=== PATIENT | female | born 1935 | race American Indian/Alaskan Native ===

== ENCOUNTER 2017-07-03 14:30 | Emergency (ER) | payer MEDICARE, MEDICAID ==
[2017-07-03 14:37] VITALS: BP 150/59
--- NOTE | 2017-07-03 14:59 | ER Document Report ---
HPI - HPI Pain Level: 1 Notes: Patient is an 81-year-old female with history of hypertension, hypercholesterolemia, diabetes, osteoarthritis who presents the ED complaining of left knee pain and low back pain status post in her kitchen prior to arrival. Patient states that she was trying to step on a spider and her foot slipped and she fell on her butt knee and back. Patient denies any head injury , loss of consciousness, nausea/vomiting. Daughter states that she is ambulating without any signs of discomfort or issues. Patient is not on any blood thinners. She is still eating and drinking without any difficulties. Denies any drug allergies. Denies any headache, fever, head injury, neck pain, changes in vision/speech/mentation/hearing, URI, sore throat, chest pain, palpitations, syncope, cough, shortness of breath, wheeze, dyspnea, abdominal pain, nausea/vomiting/diarrhea, urinary retention, dysuria, hematuria, loss of control of bowel or bladder, numbness/tingling, saddle anesthesia, muscle paralysis/weakness, or rash. - ROS Notes: REVIEW OF SYSTEMS: CONSTITUTIONAL : Denies fever, chills, or sweats. Denies recent illness. EENT: Denies eye, ear, throat, or mouth pain or symptoms. Denies nasal or sinus congestion or discharge. Denies throat, tongue, or mouth swelling or difficulty swallowing. CARDIOVASCULAR: Denies chest pain. Denies palpitations or racing or irregular heart beat. Denies ankle edema. RESPIRATORY: Denies cough, cold, or chest congestion. Denies shortness of breath, difficulty breathing, or wheezing. GASTROINTESTINAL: Denies abdominal pain or distention. Denies nausea, vomiting , or diarrhea. Denies blood in vomitus, stools, or per rectum. Denies black, tarry stools. Denies constipation. GENITOURINARY: Denies difficulty urinating, painful urination, burning, frequency, blood in urine, or discharge. MUSCULOSKELETAL: see hpi SKIN: Denies rash, lesions or sores. NEUROLOGICAL: Denies confusion or altered mental status. Denies passing out or loss of consciousness. Denies dizziness or lightheadedness. Denies headache. Denies weakness or paralysis or loss of use of either side. Denies problems with gait or speech. Denies sensory loss, numbness, or tingling. Denies seizures. ALL OTHER SYSTEMS REVIEWED AND NEGATIVE. Dictation was performed using [employer] voice recognition software - REPRODUCTIVE Reproductive: DENIES: : Past Medical History - Social History Smoking Status: Unknown if Ever Smoked Family History: Reviewed & Not Pertinent - Past Medical History Cardiac Medical History: Reports: Hx Hypercholesterolemia, Hx Hypertension Pulmonary Medical History: Reports: Hx Asthma, Hx COPD Endocrine Medical History: Reports: Hx Diabetes Mellitus Type 1, Hx Diabetes Mellitus Type 2 Malignancy Medical History: Reports: Hx Breast Cancer Past Surgical History: Reports: Hx Mastectomy - Left - Immunizations Hx Diphtheria, Pertussis, Tetanus Vaccination: Yes Hx Pneumococcal Vaccination: 06/23/14 Vertical Provider Document - CONSTITUTIONAL Agree With Documented VS: Yes Notes: PHYSICAL EXAMINATION: GENERAL: Well-appearing, well-nourished and in no acute distress. A&Ox4 HEAD: Atraumatic, normocephalic. Non-tender. No shi sign EYES: Pupils equal round and reactive to light, extraocular movements intact, sclera anicteric, conjunctiva are normal. No raccoon eyes/entrapment ENT: EAC clear b/l. TM's intact b/l without erythema, fluid, or perforation. Nares patent and without discharge. oropharynx clear without exudates. No tonsilar hypertrophy or erythema. Moist mucous membranes. No sinus tenderness. No hemotympanum/CSF discharge. NECK: Normal range of motion, supple without lymphadenopathy. No rigidity. No midline tenderness. Spurling negative. NEXUS negative. Chest: No flail chest. equal rise/fall. Non-tender LUNGS: Breath sounds clear to auscultation bilaterally and equal. No wheezes rales or rhonchi. HEART: Regular rate and rhythm without murmurs, rubs, gallops. ABDOMEN: Soft, nontender, nondistended abdomen. No guarding, no rebound. No masses appreciated. Normal bowel sounds present. No CVA tenderness bilaterally. No pulsatile mass Musculoskeletal: Ext b/l: FROM to passive/active. Strength 5+/5. No deficits noted. + mild tenderness to the anterior left knee w/o ecchymosis, deformity, or erythema/warmth. Back: FROM to passive/active. Strength 5+/5. No vertebral point tenderness, stepoffs, or deformities. No other bony tenderness or ecchymosis. SLR negative b/l. + mild tenderness to the L-paraspinal mm. No SI jt tenderness. FROM at the hips b/l, non-tender. Extremities: No cyanosis, clubbing, or edema b/l. Peripheral pulses 2+. Capillary refill less than 2 seconds. NEUROLOGICAL: MMSE intact. Cranial nerves grossly intact. Normal speech, normal gait. Normal sensory, motor exams. Reflexes 2+ b/l. Pronator drift negative. PSYCH: Normal mood, normal affect. SKIN: Warm, Dry, normal turgor, no rashes or lesions noted. - INFECTION CONTROL TRAVEL OUTSIDE OF THE [place] IN LAST 30 DAYS: No - RESPIRATORY O2 Sat by Pulse Oximetry: 97 Course - Re-evaluation Re-evalutation: 07/03/17 16:00 Patient is an afebrile, well-hydrated, 81-year-old female who presents the ED with a contusion to her left knee as well as a probable lower back strain. Vitals are stable. PE is otherwise unremarkable for any focal neurological deficits. X-ray of the low back and left knee are unremarkable for any acute pathology. Tylenol given p.o. today. Patient is ambulatory without any signs of discomfort or limping. Recommend conservative measures for symptoms. Low suspicion for any meningitis, fracture, expanding/ruptured AAA, cauda equina syndrome, epidural mass lesion/abscess, herniated disc causing severe spinal stenosis, or other systemic infection at this time. Patient/daughter are aware that this condition can change from initial presentation and that they need monitor symptoms closely for any acute changes. Recheck with your PCM in 3-5 days. Consider consult with orthopedics and physical therapy. Return to the ED with any worsening/concerning symptoms otherwise as reviewed in discharge. Patient and daughter in agreement. - Vital Signs Vital signs: Temp Pulse Resp BP Pulse Ox 99.0 F 57 L 17 150/59 H 97 07/03/17 14:36 07/03/17 14:36 07/03/17 14:36 07/03/17 14:36 07/03/17 14:36 Discharge - Discharge Clinical Impression: Contusion of left knee Qualifiers: Encounter type: initial encounter Qualified Code(s): S80.02XA - Contusion of left knee, initial encounter Low back strain Qualifiers: Encounter type: initial encounter Qualified Code(s): S39.012A - Strain of muscle, fascia and tendon of lower back, initial encounter Condition: Stable Disposition: HOME, SELF-CARE Instructions: Contusion ([facility]), Ice Packs ([facility]), Knee Exercise Program ([facility]), Low Back Pain ([facility]), Muscle Strain ([facility]), Stretching Exercises for the Back ([facility] ), Warm Packs ([facility]) Additional Instructions: Rest, Ice, Compression, Elevation Tylenol/ibuprofen as needed Consider a single point cane to aide in ambulation Light stretches daily Strength exercises as able Moist heat and massage may help F/u with your PCP in 3-5 days for a recheck Consider consult(s) with Orthopedics/physical therapy for ongoing/worsening symptoms Return to the ED with any worsening symptoms and/or development of fever, headache, chest pain, palpitations, syncope, shortness of breath, trouble breathing, abdominal pain, n/v/d, blood in stool/urine, loss of control of bowel /bladder, urinary retention, muscle weakness/paralysis, saddle anesthesia, numbness/tingling, or other worsening symptoms that are concerning to you. Forms: Elevated Blood Pressure Referrals: [facility] [Provider Group] - Follow up as needed
[2017-07-03] MEDS ORDERED: ACETAMINOPHEN 325 MG TABLET PO ONE (15:09)
--- NOTE | 2017-07-03 15:44 | RADIOLOGY REPORT (SQ) ---
EXAM DESCRIPTION: L SPINE WHOLE COMPLETED DATE/TIME: 07/03/2017 3:30 pm REASON FOR STUDY: low back pain s/p fall COMPARISON: None. NUMBER OF VIEWS: Five views including obliques. TECHNIQUE: AP, lateral, oblique, and sacral radiographic images acquired of the lumbar spine. LIMITATIONS: None. FINDINGS: MINERALIZATION: Osteopenia. SEGMENTATION: Normal. No transitional anatomy. ALIGNMENT: Normal. VERTEBRAE: Maintained height. No fracture or worrisome bone lesion. DISCS: There is narrowing of the L4-5 disc space. There is narrowing at L5-S1. Marginal osteophytes are present throughout the lumbar spine. POSTERIOR ELEMENTS: Hypertrophic facet changes are present L4-S1. HARDWARE: None in the spine. PARASPINAL SOFT TISSUES: Normal. PELVIS: Intact as visualized. No fractures or worrisome bone lesions. SI joints intact. OTHER: No other significant finding. IMPRESSION: Degenerative disc disease, multilevel spondylosis. Facet arthropathy. No acute abnorma lity. TECHNICAL DOCUMENTATION: JOB ID: [id number] [employer]- All Rights Reserved
--- NOTE | 2017-07-03 15:47 | RADIOLOGY REPORT (SQ) ---
EXAM DESCRIPTION: KNEE LEFT 3 VIEW COMPLETED DATE/TIME: 07/03/2017 3:30 pm REASON FOR STUDY: left knee pain COMPARISON: None. NUMBER OF VIEWS: Three views. TECHNIQUE: AP, lateral, and oblique radiographic images acquired of the left knee. LIMITATIONS: None. FINDINGS: MINERALIZATION: Normal. BONES: No acute fracture or dislocation. No worrisome bone lesions. JOINT: There is moderate narrowing of the medial compartment with small marginal osteophytes. Tiny p osterior patellar spurs are present. There is no joint effusion. SOFT TISSUES: No soft tissue swelling. No radio-opaque foreign body. OTHER: No other significant finding. IMPRESSION: Degenerative joint changes as described. No acute abnormality. TECHNICAL DOCUMENTATION: JOB ID: [id number] [employer]- All Rights Reserved
== END 2017-07-03 16:13 | disposition home or self-care (01) ==
LOC: ER 14:30
DX: S80.02XA Contusion of left knee, initial encounter (principal); S39.012A Strain of muscle, fascia and tendon of lower back, initial encounter; I10 Essential (primary) hypertension; E78.00 Pure hypercholesterolemia, unspecified; E11.9 Type 2 diabetes mellitus without complications; M17.12 Unilateral primary osteoarthritis, left knee; W01.0XXA Fall on same level from slipping, tripping and stumbling without subsequent striking against object, initial encounter
CPT/HCPCS: 99283; 73562; 72110; A9270

== ENCOUNTER 2020-08-05 20:56 | Inpatient (IN) | payer MEDICARE, MEDICAID ==
[2020-08-05] MEDS ORDERED: IPRATROPIUM/ALBUTEROL 0.5-2.5 MG/3 ML AMPUL NEB ONE ×2 (21:16→22:10)
--- NOTE | 2020-08-05 21:45 | RADIOLOGY REPORT (SQ) ---
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 FINDINGS: Single view is obtained. Cardiac and mediastinal contours are normal. Parenchymal band is evident about the right lung base, likely atelectasis or scar. Lungs are otherwise clear. No pleural effusion or pneumothorax. A few surgical clips project over the left axilla. IMPRESSION: No acute disease.
[2020-08-05 21:47] LABS: ABSOLUTE EOSINOPHILS # (AUTO) 0.5 10^3/uL (0.0-0.6); ABSOLUTE LYMPHOCYTES (AUTO) 3.7 10^3/uL (0.5-4.7); ABSOLUTE MONOCYTES (AUTO) 0.9 10^3/uL (0.1-1.4); BASOPHILS % (AUTO) 0.5 % (0-2); EOSINOPHILS % (AUTO) 6.4 % (0-6); HEMATOCRIT 41.9 % (36.0-47.0); HEMOGLOBIN 13.9 g/dL (12.0-15.5); LYMPHOCYTES % (AUTO) 45.5 % (13-45); MEAN CORPUSCULAR HEMOGLOBIN 27.9 pg (27.0-33.4); MEAN CORPUSCULAR VOLUME 84 fl (80-97); MONOCYTES % (AUTO) 10.6 % (3-13); PLATELET COUNT 181 10^3/uL (150-450); RED BLOOD COUNT 4.97 10^6/uL (3.72-5.28); RED CELL DISTRIBUTION WIDTH 14.2 % (11.5-14.0); TOTAL CELLS COUNTED % (AUTO) 100 %; WHITE BLOOD COUNT 8.2 10^3/uL (4.0-10.5)
[2020-08-05 22:06] LABS: ALBUMIN 4.5 g/dL (3.5-5.0); ALKALINE PHOSPHATASE 79 U/L (38-126); ANION GAP 7 (5-19); ASPARTATE AMINO TRANSFERASE 36 U/L (14-36); BILIRUBIN,DIRECT 0.4 mg/dL (0.0-0.4); BILIRUBIN,TOTAL 0.6 mg/dL (0.2-1.3); BLOOD UREA NITROGEN 24 mg/dL (7-20); CALCIUM 10.2 mg/dL (8.4-10.2); CARBON DIOXIDE 28 mmol/L (22-30); CHLORIDE 107 mmol/L (98-107); GLUCOSE 125 mg/dL (75-110); POTASSIUM 4.9 mmol/L (3.6-5.0); TOTAL PROTEIN 7.5 g/dL (6.3-8.2)
[2020-08-05] MEDS ORDERED: METHYLPREDNISOLONE INJ 125 MG/2 ML SDV IV ONE (22:11)
--- NOTE | 2020-08-05 22:17 | ER Document Report ---
ED General - General Chief Complaint: Breathing Difficulty Stated Complaint: POSSIBLE PNEUMONIA Time Seen by Provider: 08/05/20 21:29 Primary Care Provider: AARON EDGAR MD [Primary Care Provider] - Follow up as needed TRAVEL OUTSIDE OF THE [place] IN LAST 30 DAYS: No - HPI Notes: Patient is an 84-year-old female who presents to the emergency department for evaluation. She became short of breath this evening. It was gradual in onset. She denies any pain. She has a chronic cough, states it really has not been worse than normal. She denies any sore throat, ear pain, anosmia. She has no difficulty with her sense of taste. She has had no nausea or vomiting. Eating and drinking normally. Normal bowel movements. - Related Data Allergies/Adverse Reactions: No Known Allergies Allergy (Verified 07/03/17 14:32) Home Medications: haldol, simvastatin, metoprolol, novalog, lantus Past Medical History - General Information source: Patient, Relative - Social History Smoking Status: Never Smoker Chew tobacco use (# tins/day): Yes Frequency of alcohol use: None Drug Abuse: None Family History: Reviewed & Not Pertinent Patient has homicidal ideation: No - Past Medical History Cardiac Medical History: Reports: Hx Hypercholesterolemia, Hx Hypertension Pulmonary Medical History: Reports: Hx Asthma, Hx COPD Endocrine Medical History: Reports: Hx Diabetes Mellitus Type 2 Renal/ Medical History: Denies: Hx Peritoneal Dialysis Malignancy Medical History: Reports: Hx Breast Cancer Psychiatric Medical History: Reports: Other - History of visual hallucinations Past Surgical History: Reports: Hx Mastectomy - Left - Immunizations Hx Diphtheria, Pertussis, Tetanus Vaccination: Yes Hx Pneumococcal Vaccination: 06/23/14 Review of Systems - Review of Systems Constitutional: No symptoms reported EENT: No symptoms reported Cardiovascular: No symptoms reported Respiratory: See HPI Gastrointestinal: No symptoms reported Genitourinary: No symptoms reported Musculoskeletal: No symptoms reported Skin: No symptoms reported Neurological/Psychological: No symptoms reported Physical Exam - Vital signs Vitals: Temp Pulse BP Pulse Ox 97.9 F 78 197/109 H 88 L 08/05/20 21:04 08/05/20 21:04 08/05/20 21:04 08/05/20 21:04 - Notes Notes: This is an 84-year-old female, extremely hard of hearing, who appears her stated age, in a mild to moderate distress. She is tachypneic. Vital signs reviewed, please refer to chart. Head is normocephalic, atraumatic. Oral mucosa is moist. Neck is supple without meningismus. Heart is regular rate and rhythm. Lungs reveal scattered expiratory wheezes throughout. Abdomen is soft, nontender, normoactive bowel sounds throughout. Extremities without cyanosis, clubbing. Pitting edema to the pretibial regions bilaterally. Posterior calves are nontender. Peripheral pulses are equal. Skin is warm and dry. Patient is awake, alert, cooperative with examiner. Course - Re-evaluation Re-evalutation: 08/05/20 22:17 Patient presents emergency department for evaluation. She had laboratory investigations and imaging as ordered per protocol. EKG ordered. EKG reveals lateral ST depression concerning for possible ischemia. Troponin was ordered. Chest x-ray fails to show any signs of an acute pneumonia. Given her hypoxia and the current pandemic environment, the patient will have a Covid test ordered. She is feeling improved after the breathing treatment, but has an oxygen requirement. She will likely require admission. Awaiting the remainder of the patient's test results. We will continue to monitor. 08/06/20 01:05 Respiratory panel is negative. Patient's oxygenation has been stable on 2 L per nasal cannula. She does continue to have intermittent wheezing. I have spoken with Dr. Linares, he will come down and evaluate the patient. 08/06/20 01:44 Dr. Linares will admit the patient. - Vital Signs Vital signs: Temp Pulse Resp BP Pulse Ox 98.2 F 73 31 H 172/87 H 94 08/05/20 21:33 08/05/20 21:33 08/06/20 01:01 08/06/20 01:00 08/06/20 01:01 - Laboratory Results Result Diagrams: 08/05/20 21:20 08/05/20 21:20 Laboratory Results Interpreted: 08/05/20 08/05/20 08/05/20 21:20 21:20 23:50 RDW 14.2 H Lymph % (Auto) 45.5 H Eos % (Auto) 6.4 H Seg Neutrophils % 37.0 L BUN 24 H Est GFR (MDRD) Non-Af 58 L Glucose 125 H Urine Protein 100 H Ur Leukocyte Esterase SMALL H Urine Ascorbic Acid 40 H Critical Laboratory Results Reviewed: No Critical Results - Radiology Results Radiology Results Interpreted: 08/05/20 22:18 Chest X-Ray 08/05/20 21:09 IMPRESSION: No acute disease. Critical Radiology Results Reviewed: No Critical Results - EKG Interpretation by Me Additional EKG results interpreted by me: 08/05/20 22:18 Sinus rhythm with a rate of 69 bpm. Normal axis. First-degree AV block. IVCD. ST depression in anterolateral leads concerning for possible ischemia. No elevation. This is change in compared to prior study performed in June 2014. Discharge - Discharge Clinical Impression: Hypoxia, Abnormal EKG COPD (chronic obstructive pulmonary disease) Qualifiers: COPD type: COPD with acute exacerbation Qualified Code(s): J44.1 - Chronic obstructive pulmonary disease with (acute) exacerbation Condition: Stable Disposition: ADMITTED INPATIENT Admitting Provider: [facility] Admitted: Telemetry Referrals: AARON EDGAR MD [Primary Care Provider] - Follow up as needed
--- NOTE | 2020-08-05 23:56 | EKG REPORT ---
SEVERITY:- ABNORMAL ECG - SINUS RHYTHM VENTRICULAR PREMATURE COMPLEX NONSPECIFIC INTRAVENTRICULAR CONDUCTION DELAY ST DEPRESSION, CONSIDER ISCHEMIA, ANT-LAT LDS : Confirmed by: Kathy Lennon MD 05-Aug-2020 23:55:31
[2020-08-06 00:02] LABS: APPEARANCE,URINE CLEAR; BILIRUBIN,URINE NEGATIVE (NEGATIVE); COLOR,URINE YELLOW; GLUCOSE, URINE NEGATIVE (NEGATIVE); KETONES,URINE NEGATIVE (NEGATIVE); LEUKOCYTE ESTERASE,URINE SMALL (NEGATIVE); NITRITE,URINE NEGATIVE (NEGATIVE); PROTEIN,URINE 100 mg/dL (NEGATIVE); URINE SPECIFIC GRAVITY 1.019; UROBILINOGEN,URINE NEGATIVE mg/dL (<2.0)
[2020-08-06] MEDS ORDERED: ONDANSETRON HCL INJ/PF 4 MG/2 ML SDV IV PRN (01:57)
[2020-08-06] MEDS ORDERED: ACETAMINOPHEN 325 MG TABLET PO PRN (01:57)
[2020-08-06] MEDS ORDERED: DEXTROSE 40% GEL 15 GM TUBE PO PRN ×2 (02:05)
[2020-08-06] MEDS ORDERED: DEXTROSE 50%-WATER 25 GM/50 ML DISP.SYRIN IV PRN ×2 (02:05)
[2020-08-06] MEDS ORDERED: GLUCAGON,HUMAN RECOMB 1 MG INJ IM PRN (02:05)
--- NOTE | 2020-08-06 02:27 | PDOC H&P ---
History of Present Illness Admission Date/PCP: AARON EDGAR MD Patient complains of: Shortness of breath History of Present Illness: WADE PELAEZ is a 84 year old female with a history of COPD, type 2 diabetes mellitus, hypertension, hyperlipidemia and glaucoma who presents with a 1 day duration of worsening of shortness of breath. Patient is hard of hearing and unable to give detailed history but her daughter was at her bedside who is very helpful. Patient has chronic longstanding shortness of breath which has been progressively getting worse but this morning she became distressed and felt short of breath even at rest. Associated with this she also was having audible wheezing. She used albuterol inhaler 4 times with no improvement before presen ting to the ER. She has not noticed any significant change in the intensity of her cough or amount or color of sputum production. She denies any fever, chills, chest pain, palpitation, dizziness, nausea, vomiting. She also denies any orthopnea, PND, leg swelling or any change in her bowel or urinary habits. She denies any recent antibiotic use or hospitalization. Past Medical History Cardiac Medical History: Reports: Hyperlipidema, Hypertension Pulmonary Medical History: Reports: Asthma, Chronic Obstructive Pulmonary Diseas e (COPD) Endocrine Medical History: Reports: Diabetes Mellitus Type 1, Diabetes Mellitus Type 2 Malignancy Medical History: Reports: Breast Cancer Psychiatric Medical History: Reports: Other - History of visual hallucinations Past Surgical History Past Surgical History: Reports: Mastectomy - Left Social History Information Source: Patient Lives with: Family Smoking Status: Never Smoker Frequency of Alcohol Use: None Hx Recreational Drug Use: No Hx Prescription Drug Abuse: No - Advance Directive Resuscitation Status: Full Code Family History Family History: Reviewed & Not Pertinent Parental Family History Reviewed: Yes Children Family History Reviewed: Yes Sibling(s) Family History Reviewed.: Yes Medication/Allergy Home Medications: Albuterol Sulfate [Albuterol Sulfate 2.5mg/3 mL] 1 vial IH Q4 12/21/12 Insulin Aspart [Novolog Flexpen] 25 unit SUBCUT AC 12/21/12 Loratadine [Claritin 10 mg Tablet] 10 mg PO DAILY 12/21/12 Gabapentin [Neurontin 100 mg Capsule] 100 mg PO DAILY 12/28/12 Insulin Glargine,Hum.rec.anlog [Lantus Insulin 100 Unit/mL Insulin Pen] 70 unit SUBCUT QHS 12/28/12 Losartan Potassium 1 tab PO DAILY 12/28/12 Simvastatin [Zocor 40 mg Tablet] 40 mg PO QHS 12/28/12 Beclomethasone Dipropionate [Qvar] 2 puff PO BID 06/23/14 Bimatoprost [Lumigan 0.01% Oph Soln 2.5 ml/Bottle] 1 drop OU QPM 06/23/14 Cholecalciferol (Vitamin D3) [Vitamin D3] 2,000 unit PO DAILY 06/23/14 Raloxifene HCl 60 mg PO DAILY 06/23/14 Tramadol HCl 50 mg PO DAILY 06/23/14 Cyanocobalamin (Vitamin B-12) [Vitamin B-12] 1,000 mcg SL DAILY #100 tab.subl 06/29/14 Levofloxacin [Levaquin 500 mg Tablet] 500 mg PO DAILY #3 tablet 06/29/14 Prednisone [Deltasone 20 mg Tablet] 20 mg PO BID #12 tablet 06/29/14 Benzonatate [Tessalon Perle 100 mg Capsule] 100 mg PO Q8HP PRN #40 cap 10/26/14 Levofloxacin [Levaquin 750 mg Tablet] 750 mg PO DAILY #5 tablet 10/26/14 Allergies/Adverse Reactions: No Known Allergies Allergy (Verified 07/03/17 14:32) Review of Systems Constitutional: ABSENT: chills, fever(s), headache(s), weight gain, weight loss Eyes: PRESENT: visual disturbances - She has underlying glaucoma Ears: PRESENT: hearing changes - Has longstanding difficulty of hearing Nose, Mouth, and Throat: ABSENT: mouth pain, sore throat Cardiovascular: PRESENT: as per HPI Respiratory: PRESENT: as per HPI Gastrointestinal: ABSENT: abdominal pain, constipation, diarrhea, hematemesis, hematochezia, nausea, vomiting Genitourinary: ABSENT: dysuria, hematuria Musculoskeletal: ABSENT: joint swelling Integumentary: ABSENT: rash, wounds Neurological: ABSENT: abnormal gait, abnormal speech, confusion, dizziness, focal weakness, syncope Psychiatric: ABSENT: anxiety, depression, homidical ideation, suicidal ideation Endocrine: ABSENT: cold intolerance, heat intolerance, polydipsia, polyuria Hematologic/Lymphatic: ABSENT: easy bleeding, easy bruising Physical Exam Vital Signs: Temp Pulse Resp BP Pulse Ox 98.2 F 73 29 H 158/90 H 93 08/05/20 21:33 08/05/20 21:33 08/06/20 02:01 08/06/20 02:00 08/06/20 02:01 Intake & Output 08/04/20 08/05/20 08/06/20 06:59 06:59 06:59 Weight 65.317 kg Additional comments: GENERAL APPEARANCE: Alert and oriented x3, in mild respiratory distress, using accessory muscles and has audible wheeze HEENT: Normocephalic and atraumatic. No scleral icterus. Moist oral mucosa NECK: Supple. No lymphadenopathy or tenderness. No carotid bruit. No JVD CHEST: Symmetric. Nontender to palpation. LUNGS: Mild respiratory distress, using accessory respiratory muscles, has diffuse wheezing bilaterally HEART: Regular rate and rhythm with normal S1 and S2. No murmurs, gallops, or rubs. ABDOMEN: soft, active bowel sounds, no direct or rebound tenderness. No organo megaly detected. EXTREMITIES: No cyanosis, clubbing, or edema. MUSCULOSKELETAL: No deformity, atrophy or swelling noted PSYCHIATRIC: Appropriate mood and affect. SKIN: Warm, dry, and well perfused. No lesions or rashes are noted. NEUROLOGIC: No focal sensory or motor deficits are noted. Results Laboratory Results: 08/05/20 21:20 08/05/20 21:20 08/05/20 08/05/20 08/05/20 21:20 21:20 23:50 WBC 8.2 RBC 4.97 Hgb 13.9 Hct 41.9 MCV 84 MCH 27.9 MCHC 33.0 RDW 14.2 H Plt Count 181 Seg Neutrophils % 37.0 L Sodium 142.0 Potassium 4.9 Chloride 107 Carbon Dioxide 28 Anion Gap 7 BUN 24 H Creatinine 0.92 Est GFR ( Amer) > 60 Glucose 125 H Calcium 10.2 Total Bilirubin 0.6 AST 36 Alkaline Phosphatase 79 Total Protein 7.5 Albumin 4.5 Urine Color YELLOW Urine Appearance CLEAR Urine pH 5.0 Ur Specific [place] 1.019 Urine Protein 100 H Urine Glucose (UA) NEGATIVE Urine Ketones NEGATIVE Urine Blood NEGATIVE Urine Nitrite NEGATIVE Ur Leukocyte Esterase SMALL H Urine WBC (Auto) 15 Urine RBC (Auto) 2 08/05/20 21:20 Troponin I 0.013 Impressions: Chest X-Ray 08/05/20 21:09 IMPRESSION: No acute disease. Assessment and Plan - Diagnosis (1) COPD exacerbation Is this a current diagnosis for this admission?: Yes Plan: Patient presented with worsening of shortness of breath of 1 day duration Physical examination is significant for accessory respiratory muscle use, diffuse wheezing bilaterally Currently on room air and saturating mid 90s She was given breathing treatment, Solu-Medrol at the ED Chest x-ray showed no acute findings Continue Solu-Medrol 40 mg every 12 hourly Breathing treatment with DuoNeb's Placed her on Levaquin 750 mg p.o. daily Continue letter in respiratory parameters closely (2) Abnormal EKG Is this a current diagnosis for this admission?: Yes Plan: Patient currently admitted for COPD exacerbation Denies any chest pain EKG was significant for possible ST segment depression on lateral leads superimposed on ventricular ectopy Initial troponin is 0.013 Continue trending cardiac enzymes and EKG On telemetry monitoring Placed her on aspirin and high intensity statin Obtain lipid panel in the a.m. (3) Hypertension Is this a current diagnosis for this admission?: Yes Plan: Blood pressure is optimally controlled Will continue home medication: Losartan On low-sodium diet (4) Hyperlipidemia Is this a current diagnosis for this admission?: Yes Plan: Obtain updated lipid panel Patient on simvastatin at home Placed her on atorvastatin (5) Diabetes mellitus Is this a current diagnosis for this admission?: Yes Plan: Random blood sugar on presentation 125 Patient on 33 units Lantus and 12 units of aspart with meals at home Placed her on Lantus 25 units daily Sliding scale insulin, Accu-Chek and hypoglycemia protocol (6) Glaucoma Is this a current diagnosis for this admission?: Yes Plan: Continue home medications and follow-up with outpatient pulmonology (7) Hearing impaired Is this a current diagnosis for this admission?: Yes - Time Time Spent with patient: 35 or more minutes Total Critical Time (Minutes): 45 Medications reviewed and adjusted accordingly: Yes Anticipated Discharge Disposition: Home, Self Care Anticipated Discharge Timeframe: within 72 hours - Inpatient Certification Based on my medical assessment, after consideration of the patient's comorbidities, presenting symptoms, or acuity I expect that the services needed warrant INPATIENT care.: Yes I certify that my determination is in accordance with my understanding of Medicare's requirements for reasonable and necessary INPATIENT services [42 CFR 412.3e].: Yes Medical Necessity: Significant Comorbidiites Make Outpatient Treatment Too Risky, Need Close Monitoring Due to Risk of Patient Decompensation, Need For Continuous Telemetry Monitoring, Need for Nebulizer Therapy and Monitoring of Response, Risk of Complication if Not Cared For in Hospital Post Hospital Care: D/C or Transfer Summary
[2020-08-06] MEDS ORDERED: LEVOFLOXACIN 750 MG TABLET PO ONE (03:00)
[2020-08-06 03:43] LABS: ABSOLUTE LYMPHOCYTES (AUTO) 1.3 10^3/uL (0.5-4.7); ABSOLUTE MONOCYTES (AUTO) 0.1 10^3/uL (0.1-1.4); ABSOLUTE NEUT (AUTO) 3.9 10^3/uL (1.7-8.2); BASOPHILS % (AUTO) 0.6 % (0-2); EOSINOPHILS % (AUTO) 0.7 % (0-6); HEMATOCRIT 40.3 % (36.0-47.0); LYMPHOCYTES % (AUTO) 24.8 % (13-45); MEAN CORPUSCULAR HEMOGLOBIN 27.4 pg (27.0-33.4); MEAN CORPUSCULAR HGB CONC 32.3 g/dL (32.0-36.0); MEAN CORPUSCULAR VOLUME 85 fl (80-97); MONOCYTES % (AUTO) 1.8 % (3-13); PLATELET COUNT 139 10^3/uL (150-450); RED BLOOD COUNT 4.75 10^6/uL (3.72-5.28); RED CELL DISTRIBUTION WIDTH 14.1 % (11.5-14.0); SEGMENTED NEUTROPHILS % (AUTO) 72.1 % (42-78); TOTAL CELLS COUNTED % (AUTO) 100 %; WHITE BLOOD COUNT 5.4 10^3/uL (4.0-10.5)
[2020-08-06 04:04] LABS: ANION GAP 6 (5-19); BLOOD UREA NITROGEN 22 mg/dL (7-20); CALCIUM 9.8 mg/dL (8.4-10.2); CARBON DIOXIDE 26 mmol/L (22-30); CHLORIDE 109 mmol/L (98-107); GLUCOSE 216 mg/dL (75-110); POTASSIUM 4.4 mmol/L (3.6-5.0)
[2020-08-06] MEDS ORDERED: ASPIRIN 81 MG TABLET, CHEWABLE PO ONE (05:30)
[2020-08-06] MEDS: IPRATROPIUM/ALBUTEROL 0.5-2.5 MG/3 ML AMPUL NEB SCH ×6 (05:37→23:58)
--- NOTE | 2020-08-06 07:44 | EKG REPORT ---
SEVERITY:- ABNORMAL ECG - SINUS RHYTHM CONSIDER ANTEROSEPTAL INFARCT REPOL ABNRM SUGGESTS ISCHEMIA, DIFFUSE LEADS BORDERLINE PROLONGED QT INTERVAL : Confirmed by: Jona Neely MD 06-Aug-2020 07:43:30
[2020-08-06] MEDS: INSULIN REG, HUMAN 100 UNIT/ML 3 ML VIAL (PYX) SUBCUT SCH ×4 (08:16→21:16)
[2020-08-06 08:41] LABS: CHOLESTEROL 155.83 mg/dL (0-200); TRIGLYCERIDES 127 mg/dL (<150)
[2020-08-06 08:52] LABS: DIRECT LDL 68 mg/dL (<100)
--- NOTE | 2020-08-06 09:38 | PDOC CONSULTATION ---
Consultation Consult Date: 08/06/20 Attending physician:: GYPSY DEL CASTILLO Provider Consulted: JHONATHAN MEDINA Consult reason:: Elevated troponin History of Present Illness Admission Date/PCP: 08/06/20 02:13 AARON EDGAR MD History of Present Illness: WADE PELAEZ is a 84 year old female with a history of COPD, type 2 diabetes mellitus, hypertension, hyperlipidemia and glaucoma who is consulted to our service for evaluation of abnormal EKG and elevated troponins. Unfortunately the patient cannot contribute much to her history as she does not remember much of it however she had been in her usual state of health until the day of admission when she developed sudden onset of shortness of breath to the point she sought medical attention as she was still severely short of breath at rest. In the emergency room she was noted to be hypertensive with blood pressure readings as high as 204/104 and significant wheezing. She was provided breathing treatments with some relief but she continued to have an oxygen requirement therefore she was admitted. This morning she feels much better and denies shortness of breath. She denies having a cardiovascular history in the past and specifically denies chest pain, orthopnea, PND, lower extremity edema, palpitations, syncope and presyncope. Her EKG on admission demonstrated ST depressions laterally which is a new finding when compared to a prior EKG in June 2014. The EKG now shows Q waves in the septal leads with persistent ST depressions laterally. Her troponin has been increasing and the most recent value is up to 0.743. The patient states that she is very sedentary at home. Physical exam on 08/06/2020: GENERAL: Pleasant and conversational. Not in acute distress. Well groomed and well developed. HEENT: Normocephalic, atraumatic. Pupils equal. Sclerae anicteric. Oropharynx moist. NECK: No JVD. No carotid bruits. LUNGS: Faint wheezing at the bases bilaterally. Normal respiratory effort without the use of accessory muscles or intercostal retractions. CARDIOVASCULAR: Regular rate and rhythm, normal S1 and S2 without rubs, or gallops. 2 out of 6 systolic murmur throughout the precordium. PMI not displaced. ABDOMEN: No masses or tenderness to palpation. No bruit. No splenomegaly or hepatomegaly. No abdominal aorta bruit noted. EXTREMITIES: No edema, no cyanosis, no clubbing. +2 pulses femoral and pedal pulses bilaterally. SKIN: No lesions or rashes. MUSCULOSKELETAL: No chest tenderness to palpation. NEUROLOGIC: Nonfocal. No gross sensory or motor deficits bilateral upper or lower extremities. Past Medical History Cardiac Medical History: Reports: Hyperlipidema, Hypertension Pulmonary Medical History: Reports: Asthma, Chronic Obstructive Pulmonary Disease (COPD) Endocrine Medical History: Reports: Diabetes Mellitus Type 1, Diabetes Mellitus Type 2 Malignancy Medical History: Reports: Breast Cancer Psychiatric Medical History: Reports: Other - History of visual hallucinations Denies: Depression Past Surgical History Past Surgical History: Reports: Mastectomy - Left Social History Lives with: Family Smoking Status: Never Smoker Frequency of Alcohol Use: None Hx Recreational Drug Use: No Hx Prescription Drug Abuse: No - Advance Directive Resuscitation Status: Full Code Family History Family History: Reviewed & Not Pertinent Parental Family History Reviewed: Yes Children Family History Reviewed: Yes Sibling(s) Family History Reviewed.: Yes Medication/Allergy Home Medications: Albuterol Sulfate [Albuterol Sulfate 2.5mg/3 mL] 1 vial IH Q4 12/21/12 Insulin Aspart [Novolog Flexpen] 25 unit SUBCUT AC 12/21/12 Loratadine [Claritin 10 mg Tablet] 10 mg PO DAILY 12/21/12 Gabapentin [Neurontin 100 mg Capsule] 100 mg PO DAILY 12/28/12 Insulin Glargine,Hum.rec.anlog [Lantus Insulin 100 Unit/mL Insulin Pen] 70 unit SUBCUT QHS 12/28/12 Losartan Potassium 1 tab PO DAILY 12/28/12 Simvastatin [Zocor 40 mg Tablet] 40 mg PO QHS 12/28/12 Beclomethasone Dipropionate [Qvar] 2 puff PO BID 06/23/14 Bimatoprost [Lumigan 0.01% Oph Soln 2.5 ml/Bottle] 1 drop OU QPM 06/23/14 Cholecalciferol (Vitamin D3) [Vitamin D3] 2,000 unit PO DAILY 06/23/14 Raloxifene HCl 60 mg PO DAILY 06/23/14 Tramadol HCl 50 mg PO DAILY 06/23/14 Cyanocobalamin (Vitamin B-12) [Vitamin B-12] 1,000 mcg SL DAILY #100 tab.subl 06/29/14 Levofloxacin [Levaquin 500 mg Tablet] 500 mg PO DAILY #3 tablet 06/29/14 Prednisone [Deltasone 20 mg Tablet] 20 mg PO BID #12 tablet 06/29/14 Benzonatate [Tessalon Perle 100 mg Capsule] 100 mg PO Q8HP PRN #40 cap 10/26/14 Levofloxacin [Levaquin 750 mg Tablet] 750 mg PO DAILY #5 tablet 10/26/14 Allergies/Adverse Reactions: No Known Allergies Allergy (Verified 07/03/17 14:32) Physical Exam Vital Signs: Temp Pulse Resp BP Pulse Ox 98.4 F 91 16 174/78 H 100 08/06/20 04:01 08/06/20 04:01 08/06/20 04:01 08/06/20 04:01 08/06/20 04:01 Intake & Output 08/05/20 08/06/20 08/07/20 06:59 06:59 06:59 Weight 60.1 kg Results Laboratory Results: 08/06/20 03:09 08/06/20 03:09 08/05/20 08/05/20 08/05/20 21:20 21:20 23:50 WBC 8.2 RBC 4.97 Hgb 13.9 Hct 41.9 MCV 84 MCH 27.9 MCHC 33.0 RDW 14.2 H Plt Count 181 Seg Neutrophils % 37.0 L Sodium 142.0 Potassium 4.9 Chloride 107 Carbon Dioxide 28 Anion Gap 7 BUN 24 H Creatinine 0.92 Est GFR ( Amer) > 60 Glucose 125 H Calcium 10.2 Total Bilirubin 0.6 AST 36 Alkaline Phosphatase 79 Total Protein 7.5 Albumin 4.5 Urine Color YELLOW Urine Appearance CLEAR Urine pH 5.0 Ur Specific [place] 1.019 Urine Protein 100 H Urine Glucose (UA) NEGATIVE Urine Ketones NEGATIVE Urine Blood NEGATIVE Urine Nitrite NEGATIVE Ur Leukocyte Esterase SMALL H Urine WBC (Auto) 15 Urine RBC (Auto) 2 08/06/20 08/06/20 03:09 03:09 WBC 5.4 RBC 4.75 Hgb 13.0 Hct 40.3 MCV 85 MCH 27.4 MCHC 32.3 RDW 14.1 H Plt Count 139 L Seg Neutrophils % 72.1 Sodium 141.2 Potassium 4.4 Chloride 109 H Carbon Dioxide 26 Anion Gap 6 BUN 22 H Creatinine 0.75 Est GFR ( Amer) > 60 Glucose 216 H Calcium 9.8 Total Bilirubin AST Alkaline Phosphatase Total Protein Albumin Urine Color Urine Appearance Urine pH Ur Specific [place] Urine Protein Urine Glucose (UA) Urine Ketones Urine Blood Urine Nitrite Ur Leukocyte Esterase Urine WBC (Auto) Urine RBC (Auto) 08/05/20 08/06/20 21:20 03:09 Troponin I 0.013 0.743 Impressions: Chest X-Ray 08/05/20 21:09 IMPRESSION: No acute disease. 08/06/20 03:09 08/06/20 03:09 MCV 85 fl (80-97) 08/06/20 03:09 MCH 27.4 pg (27.0-33.4) 08/06/20 03:09 MCHC 32.3 g/dL (32.0-36.0) 08/06/20 03:09 RDW 14.1 % (11.5-14.0) H 08/06/20 03:09 Seg Neutrophils % 72.1 % (42-78) 08/06/20 03:09 Chloride 109 mmol/L (98-107) H 08/06/20 03:09 Carbon Dioxide 26 mmol/L (22-30) 08/06/20 03:09 Anion Gap 6 (5-19) 08/06/20 03:09 Est GFR ( Amer) > 60 (>60) 08/06/20 03:09 Glucose 216 mg/dL (75-110) H 08/06/20 03:09 Calcium 9.8 mg/dL (8.4-10.2) 08/06/20 03:09 Total Bilirubin 0.6 mg/dL (0.2-1.3) 08/05/20 21:20 AST 36 U/L (14-36) 08/05/20 21:20 Alkaline Phosphatase 79 U/L (38-126) 08/05/20 21:20 Total Protein 7.5 g/dL (6.3-8.2) 08/05/20 21:20 Albumin 4.5 g/dL (3.5-5.0) 08/05/20 21:20 Urine Color YELLOW 08/05/20 23:50 Urine Appearance CLEAR 08/05/20 23:50 Urine pH 5.0 (5.0-9.0) 08/05/20 23:50 Ur Specific [place] 1.019 08/05/20 23:50 Urine Protein 100 mg/dL (NEGATIVE) H 08/05/20 23:50 Urine Glucose (UA) NEGATIVE mg/dL (NEGATIVE) 08/05/20 23:50 Urine Ketones NEGATIVE mg/dL (NEGATIVE) 08/05/20 23:50 Urine Blood NEGATIVE (NEGATIVE) 08/05/20 23:50 Urine Nitrite NEGATIVE (NEGATIVE) 08/05/20 23:50 Ur Leukocyte Esterase SMALL (NEGATIVE) H 08/05/20 23:50 Urine WBC (Auto) 15 /HPF 08/05/20 23:50 Urine RBC (Auto) 2 /HPF 08/05/20 23:50 08/05/20 08/06/20 21:20 03:09 Troponin I 0.013 0.743 Current Medication List Generic Name Dose Route Start Last Admin Trade Name Freq PRN Reason Stop Dose Admin Acetaminophen 650 mg 08/06/20 01:57 Acetaminophen 325 Mg Tablet PO 09/05/20 01:56 Q4HP PRN FEVER >101 Albuterol/Ipratropium 3 ml 08/06/20 04:00 08/06/20 05:37 Ipratropium/Albuterol 0.5-2.5 Mg/3 Ml Ampul NEB 09/05/20 03:59 Not Given RTQ4 RUPESH Aspirin 81 mg 08/06/20 10:00 Aspirin 81 Mg Tablet, Chewable PO 09/05/20 09:59 DAILY RUPESH Atorvastatin Calcium 40 mg 08/06/20 22:00 Atorvastatin Calcium 40 Mg Tablet PO 09/05/20 21:59 QHS RUPESH Dextrose 12.5 gm 08/06/20 02:05 Dextrose 50%-Water 25 Gm/50 Ml Disp.Syrin IV 09/05/20 02:04 PRN PRN FOR BG 50-69 IN ALERT PATIENT Protocol Dextrose 25 gm 08/06/20 02:05 Dextrose 50%-Water 25 Gm/50 Ml Disp.Syrin IV 09/05/20 02:04 PRN PRN PER PROTOCOL Protocol Enoxaparin Sodium 40 mg 08/06/20 10:00 Enoxaparin Sodium Inj 40 Mg/0.4 Ml Disp.Syrin SUBCUT 09/05/20 09:59 DAILY RUPESH Glucagon 1 mg 08/06/20 02:05 Glucagon,Human Recomb 1 Mg Inj IM 09/05/20 02:04 PRN PRN Evaluate for BG < 70 Protocol Glucose 15 gm 08/06/20 02:05 Dextrose 40% Gel 15 Gm Tube PO 09/05/20 02:04 PRN PRN FOR BG 50-69 IN ALERT PATIENT Protocol Glucose 30 gm 08/06/20 02:05 Dextrose 40% Gel 15 Gm Tube PO 09/05/20 02:04 PRN PRN FOR BG < 50 IN ALERT PATIENT Protocol Insulin Glargine 25 unit 08/06/20 22:00 Insulin Glargine,Hum.Rec.Anlog 1,000 Unit/10 Ml Vial SUBCUT 09/05/20 21:59 QHS [facility] Insulin Human Regular 0 - 12 unit 08/06/20 08:00 Insulin Reg, Human 100 Unit/Ml 3 Ml Vial (Pyx) SUBCUT 09/05/20 07:59 ACHS [facility] Protocol Levofloxacin 750 mg 08/06/20 10:00 Levofloxacin 750 Mg Tablet PO 08/13/20 09:59 DAILY [facility] Losartan Potassium 25 mg 08/06/20 10:00 Losartan Potassium 25 Mg Tablet PO 09/05/20 09:59 DAILY [facility] Methylprednisolone Sodium Succinate 40 mg 08/06/20 10:00 Methylprednisolone Inj 40 Mg/1 Ml Sdv IV 09/05/20 09:59 Q12 [facility] Ondansetron HCl 4 mg 08/06/20 01:57 Ondansetron Hcl Inj/Pf 4 Mg/2 Ml Sdv IV 09/05/20 01:56 Q8HP PRN FOR NAUSEA/VOMITING Discontinued Medications Generic Name Dose Route Start Last Admin Trade Name Freq PRN Reason Stop Dose Admin Albuterol/Ipratropium 3 ml 08/05/20 21:16 08/05/20 21:30 Ipratropium/Albuterol 0.5-2.5 Mg/3 Ml Ampul NEB 08/05/20 21:17 3 ml NOW ONE Administration Albuterol/Ipratropium 3 ml 08/05/20 22:10 08/05/20 22:30 Ipratropium/Albuterol 0.5-2.5 Mg/3 Ml Ampul NEB 08/05/20 22:11 3 ml NOW ONE Administration Aspirin 324 mg 08/06/20 05:30 08/06/20 05:25 Aspirin 81 Mg Tablet, Chewable PO 08/06/20 05:31 324 mg NOW ONE Administration Levofloxacin 750 mg 08/06/20 03:00 08/06/20 03:23 Levofloxacin 750 Mg Tablet PO 08/06/20 03:01 750 mg NOW ONE Administration Methylprednisolone Sodium Succinate 125 mg 08/05/20 22:11 08/05/20 22:34 Methylprednisolone Inj 125 Mg/2 Ml Sdv IV 08/05/20 22:12 125 mg NOW ONE Administration Assessment & Plan - Diagnosis (1) NSTEMI (non-ST elevated myocardial infarction) Is this a current diagnosis for this admission?: Yes Plan: 84-year-old female with multiple cardiac risk factors to include sedentary lifestyle, age, diabetes, hypertension and hyperlipidemia who presented to the emergency room with acute onset of shortness of breath and tachypnea. Her EKG on admission demonstrated ischemic changes when compared to prior EKG done in June 2014. The EKG has not progressed to having Q waves in the septal leads with persistent ST depressions laterally the patient however denies chest pain and angina equivalents. Unfortunately she continues to wheeze therefore we will hold off on a beta-yariel for now. Given her age and comorbidities as well as her functional status we will initiate medical management and will discuss with the family and the patient on how to proceed with invasive assessment versus just medical management. Recommendations: -Start Plavix 75 mg daily. -Continue with baby aspirin. -Increase losartan to 50 mg daily. -Continue with Lipitor at current doses. -Continue to trend troponins. -Echocardiogram to be done today. -Heart healthy diet. -Continue with cardiac telemetry. -Sublingual nitroglycerin as needed for ischemic symptoms. -We will continue to follow with you. (2) Hyperlipidemia Is this a current diagnosis for this admission?: Yes Plan: The patient is currently on Lipitor. We will continue with current management. (3) Hypertension Is this a current diagnosis for this admission?: Yes Plan: Her blood pressure is above goal. Recommendations: -Increase losartan to 50 mg daily. -Low-sodium diet. (4) Diabetes mellitus Is this a current diagnosis for this admission?: Yes Plan: Further management per primary team.
[2020-08-06] MEDS: METHYLPREDNISOLONE INJ 40 MG/1 ML SDV IV SCH ×2 (09:53→21:25)
[2020-08-06] MEDS: ENOXAPARIN SODIUM INJ 60 MG/0.6 ML DISP.SYRIN SUBCUT SCH ×2 (09:54→21:25)
[2020-08-06] MEDS: CLOPIDOGREL BISULFATE 75 MG TABLET PO SCH (09:54)
[2020-08-06] MEDS: LOSARTAN POTASSIUM 25 MG TABLET PO SCH (09:54)
[2020-08-06] MEDS ORDERED: ASPIRIN 81 MG TABLET, CHEWABLE PO SCH (10:00)
[2020-08-06] MEDS ORDERED: ENOXAPARIN SODIUM INJ 40 MG/0.4 ML DISP.SYRIN SUBCUT SCH ×2 (10:00)
[2020-08-06] MEDS ORDERED: LEVOFLOXACIN 750 MG TABLET PO SCH (10:00)
--- NOTE | 2020-08-06 13:22 | EKG REPORT ---
SEVERITY:- ABNORMAL ECG - SINUS RHYTHM CONSIDER ANTEROSEPTAL INFARCT NONSPECIFIC REPOL ABNORMALITY, LATERAL LEADS BORDERLINE PROLONGED QT INTERVAL : Confirmed by: Jona Neely MD 06-Aug-2020 13:22:05
[2020-08-06] MEDS ORDERED: [UNRECOGNIZED DRUG - OTHER] OU SCH (14:10)
--- NOTE | 2020-08-06 14:22 | Progress Note ---
Provider Note Provider Note: Patient seen and examined by me. She is chest pain-free this morning and her shortness of breath is improved. Her wheezing has also resolved. She notably is having an NSTEMI and her troponin still trending up. Notable EKG abnormalities of ST depressions. I have initiated her on therapeutic Lovenox this morning to complete 48 hours of medical management. I discussed with cardiology who recommends medical management with continuation of Lovenox and antiplatelet therapy. Have discussed with patient's granddaughter and front end assistant Abbey who is in agreement with medical management. She did mention the patient is not supposed to take aspirin due to previous history of peptic ulcer and stomach upset from aspirin requiring Prilosec. I discussed with her that I can start patient on Protonix and put her on Plavix instead of aspirin. She is in agreement with this. Plan to initiate beta-yariel tomorrow since bronchospasms have improved. We will continue duo nebs and steroids. I will discontinue Levaquin at this point as her exacerbation is remarkably improved with no apparent wheezing currently and her QTC is prolonged. Chest x-ray is clear. Resume her home regimen of Premeal insulin and Lantus.
[2020-08-06] MEDS ORDERED: CALCIUM CARBONATE 600 MG TABLET PO SCH (15:00)
[2020-08-06] MEDS: INSULIN LISPRO 100 UNIT/ML 3 ML VIAL SUBCUT SCH (16:56)
[2020-08-06] MEDS: CHOLECALCIFEROL (D3) 1,000 UNIT (25 MCG) TABLET PO SCH (16:57)
[2020-08-06] MEDS: ASCORBIC ACID 500 MG TABLET PO SCH (16:57)
[2020-08-06] MEDS ORDERED: TIMOLOL OU SCH (18:00)
[2020-08-06] MEDS ORDERED: BRIMONIDINE TARTRATE OU SCH (18:00)
[2020-08-06] MEDS ORDERED: [UNRECOGNIZED DRUG - OTHER] OU SCH (18:00)
[2020-08-06] MEDS: BRIMONIDINE TARTRATE 0.2% OPH SOLN 5 ML OU SCH (18:30)
[2020-08-06] MEDS: DOCUSATE SODIUM 100 MG CAPSULE PO SCH (18:31)
[2020-08-06] MEDS: TIMOLOL MALEATE 0.5% OPH SOLN 5 ML OU SCH (18:32)
--- NOTE | 2020-08-06 18:38 | XCELERA REPORT ---
[address] [address] Transthoracic Echocardiogram Report Name: WADE PELAEZ Age: 84 yrs Gender: Female : 1935 Patient Status: Inpatient Patient Location: [address] [place], [place] [address] Study Date: 08/06/2020 10:34 AM Height: 60 in Weight: 132 lb BSA: 1.6 m2 Procedure: A complete two-dimensional transthoracic echocardiogram was performed (2D, M-mode, spectral and color flow Doppler). The study was technically adequate with some images being suboptimal in quality. Reason For Study: NSTEMI Ordering Physician: JHONATHAN BUSTAMANTE Performed By: Lacie Cheek Interpretation Summary The left ventricle is grossly normal size. Left ventricular systolic function is normal. The Ejection Fraction estimate is 55-60%. LV diastolic function could not be adequately assessed. Mild hypokinesis of the mid and distal septum. Trace MR, trace TR, trace PI. No prior studies for comparison. MMode/2D Measurements & Calculations RVDd: 2.8 cm LVIDd: 4.4 cm FS: 35.8 % Ao root diam: 2.4 cm IVSd: 0.96 cm LVIDs: 2.8 cm EDV(Teich): 89.4 ml Ao root area: 4.5 cm2 LVPWd: 0.99 cm ESV(Teich): 30.8 ml LA dimension: 2.6 cm EF(Teich): 65.5 % Doppler Measurements & Calculations MV E max terrell: MV P1/2t max terrell: Ao V2 max: LV V1 max P.0 cm/sec 68.0 cm/sec 165.3 cm/sec 5.1 mmHg MV A max terrell: MV P1/2t: 39.9 msec Ao max PG: LV V1 max: 124.5 cm/sec MVA(P1/2t): 5.5 cm2 10.9 mmHg 113.0 cm/sec MV E/A: 0.55 MV dec slope: 499.2 cm/sec2 MV dec time: 0.14 sec PA V2 max: TR max terrell: MV P1/2t-pr_phl: 138.7 cm/sec 239.5 cm/sec 39.9 msec PA max P.7 mmHgTR max P.9 mmHg Left Ventricle The left ventricle is grossly normal size. Left ventricular systolic function is normal. The Ejection Fraction estimate is 55-60%. LV diastolic function could not be adequately assessed. Mild hypokinesis of the mid and distal septum. Right Ventricle The right ventricle is normal in size, thickness and function. The right ventricular systolic function is normal. Atria The right atrium is normal. The left atrial size is normal. Interarterial septum not well visualized and not well dopplered. Cannot comment on ASD/PFO presence. Mitral Valve The mitral valve is normal in structure and function. There is no mitral valve stenosis. There is a trace amount of mitral regurgitation. Aortic Valve The aortic valve is mildly calcified. There is no aortic valve stenosis. No aortic regurgitation is present. Tricuspid Valve The tricuspid valve is not well visualized, but is grossly normal. There is a trace or physiologic amount of tricuspid regurgitation. Pulmonic Valve The pulmonic valve is normal in structure and function. There is a trace or physiologic amount of pulmonic regurgitation. Great Vessels The inferior vena cava was not well visualized. Effusions There is no pericardial effusion. There is no pleural effusion. : JHONATHAN BUSTAMANTE, Jhonathan
[2020-08-06] MEDS: INSULIN GLARGINE,HUM.REC.ANLOG 1,000 UNIT/10 ML VIAL SUBCUT SCH (21:25)
[2020-08-06] MEDS: DULOXETINE HCL 20 MG CAPSULE.DR PO SCH (21:25)
[2020-08-06] MEDS: ATORVASTATIN CALCIUM 40 MG TABLET PO SCH (21:25)
[2020-08-06] MEDS: LATANOPROST 0.005% OPH SOLN 2.5 ML OU SCH (21:26)
[2020-08-06] MEDS ORDERED: INSULIN GLARGINE,HUM.REC.ANLOG 1,000 UNIT/10 ML VIAL SUBCUT SCH ×2 (22:00)
[2020-08-07] MEDS: IPRATROPIUM/ALBUTEROL 0.5-2.5 MG/3 ML AMPUL NEB SCH ×5 (04:06→21:31)
[2020-08-07 05:22] LABS: HEMATOCRIT 33.5 % (36.0-47.0); HEMOGLOBIN 11.1 g/dL (12.0-15.5); MEAN CORPUSCULAR HEMOGLOBIN 27.9 pg (27.0-33.4); MEAN CORPUSCULAR HGB CONC 33.2 g/dL (32.0-36.0); MEAN CORPUSCULAR VOLUME 84 fl (80-97); PLATELET COUNT 135 10^3/uL (150-450); RED BLOOD COUNT 3.99 10^6/uL (3.72-5.28); RED CELL DISTRIBUTION WIDTH 13.8 % (11.5-14.0); WHITE BLOOD COUNT 6.2 10^3/uL (4.0-10.5)
[2020-08-07 05:40] LABS: BLOOD UREA NITROGEN 32 mg/dL (7-20); CALCIUM 10.6 mg/dL (8.4-10.2); GLUCOSE 134 mg/dL (75-110); POTASSIUM 4.6 mmol/L (3.6-5.0)
[2020-08-07 05:46] LABS: CARBON DIOXIDE 29 mmol/L (22-30); CHLORIDE 105 mmol/L (98-107)
[2020-08-07 05:57] LABS: ANION GAP 3 (5-19)
[2020-08-07] MEDS ORDERED: LEVOFLOXACIN 500 MG TABLET PO SCH (08:00)
[2020-08-07] MEDS: INSULIN REG, HUMAN 100 UNIT/ML 3 ML VIAL (PYX) SUBCUT SCH ×4 (08:47→21:26)
[2020-08-07] MEDS: HALOPERIDOL 0.5 MG TABLET PO SCH (08:49)
[2020-08-07] MEDS: INSULIN LISPRO 100 UNIT/ML 3 ML VIAL SUBCUT SCH ×3 (08:49→18:10)
[2020-08-07] MEDS: LOSARTAN POTASSIUM 25 MG TABLET PO SCH (09:28)
[2020-08-07] MEDS: DOCUSATE SODIUM 100 MG CAPSULE PO SCH ×2 (09:28→18:10)
[2020-08-07] MEDS: BRIMONIDINE TARTRATE 0.2% OPH SOLN 5 ML OU SCH ×2 (09:29→18:11)
[2020-08-07] MEDS: TIMOLOL MALEATE 0.5% OPH SOLN 5 ML OU SCH ×2 (09:29→18:11)
[2020-08-07] MEDS: CLOPIDOGREL BISULFATE 75 MG TABLET PO SCH (09:29)
[2020-08-07] MEDS: METHYLPREDNISOLONE INJ 40 MG/1 ML SDV IV SCH (09:30)
[2020-08-07] MEDS: ENOXAPARIN SODIUM INJ 60 MG/0.6 ML DISP.SYRIN SUBCUT SCH ×2 (09:32→21:27)
--- NOTE | 2020-08-07 09:54 | PDOC PROGRESS REPORT ---
Subjective Date:: 08/07/20 Subjective:: WADE PELAEZ is a 84 year old female with a history of COPD, type 2 diabetes mellitus, hypertension, hyperlipidemia and glaucoma who is consulted to our service for evaluation of abnormal EKG and elevated troponins. Unfortunately the patient cannot contribute much to her history as she does not remember much of it however she had been in her usual state of health until the day of admission when she developed sudden onset of shortness of breath to the point she sought medical attention as she was still severely short of breath at rest. In the emergency room she was noted to be hypertensive with blood pressure readings as high as 204/104 and significant wheezing. She was provided breathing treatments with some relief but she continued to have an oxygen requirement therefore she was admitted. This morning she feels much better and denies shortness of breath. She denies having a cardiovascular history in the past and specifically denies chest pain, orthopnea, PND, lower extremity edema, palpitations, syncope and presyncope. Her EKG on admission demonstrated ST depressions laterally which is a new finding when compared to a prior EKG in June 2014. The EKG now shows Q waves in the septal leads with persistent ST depressions laterally. Her troponin has been increasing and the most recent value is up to 0.743. The patient states that she is very sedentary at home. 08/07/2020: The patient had an uneventful night and continues to be asymptomatic from a cardiovascular standpoint. She is eager to go home. He is hemodynamically and electrically stable with blood pressure at goal. Her troponin is downtrending now and is down to 0.699. Of note, her hemoglobin dropped from 13 on admission to 11 as of today. It has been decided to proceed with medical management of her NSTEMI. Her telemetry shows normal sinus rhythm with PVCs and artifact. Physical exam on 08/07/2020: GENERAL: Sitting up in bed without any complaints and asking to go home. Pleasant and conversational. Not in acute distress. Well groomed and well developed. HEENT: Normocephalic, atraumatic. Pupils equal. Sclerae anicteric. Oropharynx moist. NECK: No JVD. No carotid bruits. LUNGS: Clear to auscultation bilaterally. Normal respiratory effort without the use of accessory muscles or intercostal retractions. CARDIOVASCULAR: Regular rate and rhythm, normal S1 and S2 without rubs, or gallops. 2 out of 6 systolic murmur throughout the precordium. PMI not d isplaced. ABDOMEN: No masses or tenderness to palpation. No bruit. No splenomegaly or hepatomegaly. No abdominal aorta bruit noted. EXTREMITIES: No edema, no cyanosis, no clubbing. +2 pulses femoral and pedal pulses bilaterally. SKIN: No lesions or rashes. MUSCULOSKELETAL: No chest tenderness to palpation. NEUROLOGIC: Nonfocal. No gross sensory or motor deficits bilateral upper or lower extremities. Cardiac studies: Echocardiogram on 08/06/2020: -EF 55 to 60%. -Mild hypokinesis of the mid and distal septum. -Trace MR, trace TR, trace PI. -No prior studies for comparison. Reason For Visit: COPD EXACERBATION,NSTEMI Physical Exam Vital Signs: Temp Pulse Resp BP Pulse Ox 98.1 F 75 14 134/55 H 95 08/07/20 07:31 08/07/20 08:30 08/07/20 08:30 08/07/20 07:31 08/07/20 08:30 Intake & Output 08/06/20 08/07/20 08/08/20 06:59 06:59 06:59 Intake Total 798 Output Total 520 Balance 278 Weight 60.1 kg 61.9 kg Results Laboratory Results: 08/07/20 04:03 08/07/20 04:03 08/07/20 08/07/20 04:03 04:03 WBC 6.2 RBC 3.99 Hgb 11.1 L Hct 33.5 L MCV 84 MCH 27.9 MCHC 33.2 RDW 13.8 Plt Count 135 L Sodium 136.6 L Potassium 4.6 Chloride 105 Carbon Dioxide 29 Anion Gap 3 L BUN 32 H Creatinine 1.16 Est GFR ( Amer) 54 L Glucose 134 H Calcium 10.6 H 08/05/20 21:20 Blood Blood Culture (PCR) - Final Staphylococcus Species 08/05/20 08/06/20 08/06/20 21:20 03:09 09:05 Troponin I 0.013 0.743 1.070 08/06/20 08/07/20 16:52 04:03 Troponin I 1.010 0.699 Impressions: Chest X-Ray 08/05/20 21:09 IMPRESSION: No acute disease. 08/07/20 04:03 08/07/20 04:03 MCV 84 fl (80-97) 08/07/20 04:03 MCH 27.9 pg (27.0-33.4) 08/07/20 04:03 MCHC 33.2 g/dL (32.0-36.0) 08/07/20 04:03 RDW 13.8 % (11.5-14.0) 08/07/20 04:03 Seg Neutrophils % 72.1 % (42-78) 08/06/20 03:09 Chloride 105 mmol/L (98-107) 08/07/20 04:03 Carbon Dioxide 29 mmol/L (22-30) 08/07/20 04:03 Anion Gap 3 (5-19) L 08/07/20 04:03 Est GFR ( Amer) 54 (>60) L 08/07/20 04:03 Glucose 134 mg/dL (75-110) H 08/07/20 04:03 Calcium 10.6 mg/dL (8.4-10.2) H 08/07/20 04:03 Total Bilirubin 0.6 mg/dL (0.2-1.3) 08/05/20 21:20 AST 36 U/L (14-36) 08/05/20 21:20 Alkaline Phosphatase 79 U/L (38-126) 08/05/20 21:20 Total Protein 7.5 g/dL (6.3-8.2) 08/05/20 21:20 Albumin 4.5 g/dL (3.5-5.0) 08/05/20 21:20 Triglycerides 127 mg/dL (<150) 08/06/20 03:09 Cholesterol 155.83 mg/dL (0-200) 08/06/20 03:09 LDL Cholesterol Direct 68 mg/dL (<100) 08/06/20 03:09 VLDL Cholesterol 25.0 mg/dL (10-31) 08/06/20 03:09 HDL Cholesterol 59 mg/dL (>40) 08/06/20 03:09 Urine Color YELLOW 08/05/20 23:50 Urine Appearance CLEAR 08/05/20 23:50 Urine pH 5.0 (5.0-9.0) 08/05/20 23:50 Ur Specific [place] 1.019 08/05/20 23:50 Urine Protein 100 mg/dL (NEGATIVE) H 08/05/20 23:50 Urine Glucose (UA) NEGATIVE mg/dL (NEGATIVE) 08/05/20 23:50 Urine Ketones NEGATIVE mg/dL (NEGATIVE) 08/05/20 23:50 Urine Blood NEGATIVE (NEGATIVE) 08/05/20 23:50 Urine Nitrite NEGATIVE (NEGATIVE) 08/05/20 23:50 Ur Leukocyte Esterase SMALL (NEGATIVE) H 08/05/20 23:50 Urine WBC (Auto) 15 /HPF 08/05/20 23:50 Urine RBC (Auto) 2 /HPF 08/05/20 23:50 08/05/20 21:20 Blood Blood Culture (PCR) - Final Staphylococcus Species 08/05/20 08/06/20 08/06/20 21:20 03:09 09:05 Troponin I 0.013 0.743 1.070 08/06/20 08/07/20 16:52 04:03 Troponin I 1.010 0.699 Current Medication List Generic Name Dose Route Start Last Admin Trade Name Freq PRN Reason Stop Dose Admin Acetaminophen 650 mg 08/06/20 01:57 Acetaminophen 325 Mg Tablet PO 09/05/20 01:56 Q4HP PRN FEVER >101 Albuterol/Ipratropium 3 ml 08/06/20 04:00 08/07/20 08:30 Ipratropium/Albuterol 0.5-2.5 Mg/3 Ml Ampul NEB 09/05/20 03:59 3 ml RTQ4 RUPESH Administration Ascorbic Acid 500 mg 08/06/20 15:00 08/06/20 16:57 Ascorbic Acid 500 Mg Tablet PO 09/05/20 14:59 500 mg Q2D@0800 RUPESH Administration Atorvastatin Calcium 40 mg 08/06/20 22:00 08/06/20 21:25 Atorvastatin Calcium 40 Mg Tablet PO 09/05/20 21:59 40 mg QHS RUPESH Administration Brimonidine Tartrate 1 drop 08/06/20 18:00 08/07/20 09:29 Brimonidine Tartrate 0.2% Oph Soln 5 Ml OU 09/05/20 17:59 1 drop BID RUPESH Administration Calcium Carbonate 600 mg 08/06/20 15:00 08/06/20 16:57 Calcium Carbonate 600 Mg Tablet PO 09/05/20 14:59 600 mg Q2D@0800 RUPESH Administration Cholecalciferol 2,000 unit 08/06/20 15:00 08/06/20 16:57 Cholecalciferol (D3) 1,000 Unit (25 Mcg) Tablet PO 09/05/20 14:59 2,000 unit Q2D@0800 RUPESH Administration Clopidogrel Bisulfate 75 mg 08/06/20 10:00 08/07/20 09:29 Clopidogrel Bisulfate 75 Mg Tablet PO 09/05/20 09:59 75 mg DAILY RUPESH Administration Dextrose 12.5 gm 08/06/20 02:05 Dextrose 50%-Water 25 Gm/50 Ml Disp.Syrin IV 09/05/20 02:04 PRN PRN FOR BG 50-69 IN ALERT PATIENT Protocol Dextrose 25 gm 08/06/20 02:05 Dextrose 50%-Water 25 Gm/50 Ml Disp.Syrin IV 09/05/20 02:04 PRN PRN PER PROTOCOL Protocol Docusate Sodium 100 mg 08/06/20 18:00 08/07/20 09:28 Docusate Sodium 100 Mg Capsule PO 09/05/20 17:59 100 mg BID RUPESH Administration Duloxetine HCl 20 mg 08/06/20 22:00 08/06/20 21:25 Duloxetine Hcl 20 Mg Capsule.Dr PO 09/05/20 21:59 20 mg QHS RUPESH Administration Enoxaparin Sodium 60 mg 08/06/20 10:00 08/07/20 09:32 Enoxaparin Sodium Inj 60 Mg/0.6 Ml Disp.Syrin SUBCUT 09/05/20 09:59 60 mg Q12 RUPESH Administration Glucagon 1 mg 08/06/20 02:05 Glucagon,Human Recomb 1 Mg Inj IM 09/05/20 02:04 PRN PRN Evaluate for BG < 70 Protocol Glucose 15 gm 08/06/20 02:05 Dextrose 40% Gel 15 Gm Tube PO 09/05/20 02:04 PRN PRN FOR BG 50-69 IN ALERT PATIENT Protocol Glucose 30 gm 08/06/20 02:05 Dextrose 40% Gel 15 Gm Tube PO 09/05/20 02:04 PRN PRN FOR BG < 50 IN ALERT PATIENT Protocol Haloperidol 0.125 mg 08/07/20 08:00 08/07/20 08:49 Haloperidol 0.5 Mg Tablet PO 09/06/20 07:59 0.125 mg QAM RUPESH Administration Insulin Glargine 30 unit 08/06/20 22:00 08/06/20 21:25 Insulin Glargine,Hum.Rec.Anlog 1,000 Unit/10 Ml Vial SUBCUT 09/05/20 21:59 30 unit QHS RUPESH Administration Insulin Human Lispro 12 unit 08/06/20 16:00 08/07/20 08:49 Insulin Lispro 100 Unit/Ml 3 Ml Vial SUBCUT 09/05/20 15:59 12 unit AC RUPESH Administration Insulin Human Regular 0 - 12 unit 08/06/20 08:00 08/07/20 08:47 Insulin Reg, Human 100 Unit/Ml 3 Ml Vial (Pyx) SUBCUT 09/05/20 07:59 Not Given ACHS RUPESH Protocol Latanoprost 1 drop 08/06/20 22:00 08/06/20 21:26 Latanoprost 0.005% Oph Soln 2.5 Ml OU 09/05/20 21:59 1 drop QHS RUPESH Administration Losartan Potassium 25 mg 08/06/20 10:00 08/07/20 09:28 Losartan Potassium 25 Mg Tablet PO 09/05/20 09:59 25 mg DAILY RUPESH Administration Methylprednisolone Sodium Succinate 40 mg 08/06/20 10:00 08/07/20 09:30 Methylprednisolone Inj 40 Mg/1 Ml Sdv IV 09/05/20 09:59 40 mg Q12 RUPESH Administration Ondansetron HCl 4 mg 08/06/20 01:57 Ondansetron Hcl Inj/Pf 4 Mg/2 Ml Sdv IV 09/05/20 01:56 Q8HP PRN FOR NAUSEA/VOMITING Pantoprazole Sodium 40 mg 08/07/20 15:00 Pantoprazole Sodium 40 Mg Tablet. PO 09/06/20 14:59 Q6AM RUPESH Timolol Maleate 1 drop 08/06/20 18:00 08/07/20 09:29 Timolol Maleate 0.5% Oph Soln 5 Ml OU 09/05/20 17:59 1 drop BID RUPESH Administration Discontinued Medications Generic Name Dose Route Start Last Admin Trade Name Freq PRN Reason Stop Dose Admin Albuterol/Ipratropium 3 ml 08/05/20 21:16 08/05/20 21:30 Ipratropium/Albuterol 0.5-2.5 Mg/3 Ml Ampul NEB 08/05/20 21:17 3 ml NOW ONE Administration Albuterol/Ipratropium 3 ml 08/05/20 22:10 08/05/20 22:30 Ipratropium/Albuterol 0.5-2.5 Mg/3 Ml Ampul NEB 08/05/20 22:11 3 ml NOW ONE Administration Aspirin 81 mg 08/06/20 10:00 08/06/20 09:54 Aspirin 81 Mg Tablet, Chewable PO 09/05/20 09:59 81 mg DAILY RUPESH Administration Aspirin 324 mg 08/06/20 05:30 08/06/20 05:25 Aspirin 81 Mg Tablet, Chewable PO 08/06/20 05:31 324 mg NOW ONE Administration Enoxaparin Sodium 40 mg 08/06/20 10:00 Enoxaparin Sodium Inj 40 Mg/0.4 Ml Disp.Syrin SUBCUT 09/05/20 09:59 DAILY [facility] Insulin Glargine 25 unit 08/06/20 22:00 Insulin Glargine,Hum.Rec.Anlog 1,000 Unit/10 Ml Vial SUBCUT 09/05/20 21:59 QHS [facility] Insulin Glargine 16 unit 08/06/20 22:00 Insulin Glargine,Hum.Rec.Anlog 1,000 Unit/10 Ml Vial SUBCUT 09/05/20 21:59 QHS [facility] Levofloxacin 750 mg 08/06/20 03:00 08/06/20 03:23 Levofloxacin 750 Mg Tablet PO 08/06/20 03:01 750 mg NOW ONE Administration Levofloxacin 500 mg 08/07/20 08:00 Levofloxacin 500 Mg Tablet PO 08/14/20 07:59 [facility] Methylprednisolone Sodium Succinate 125 mg 08/05/20 22:11 08/05/20 22:34 Methylprednisolone Inj 125 Mg/2 Ml Sdv IV 08/05/20 22:12 125 mg NOW ONE Administration Assessment & Plan - Diagnosis (1) NSTEMI (non-ST elevated myocardial infarction) Is this a current diagnosis for this admission?: Yes Plan: The patient has done very well since admission, no recurrence of ischemic symptoms, normal ejection fraction on echocardiogram yesterday with mild hypokinesis of the left ventricular septum. Her telemetry is stable and without atrial or ventricular dysrhythmias except PVCs. She is eager to go home. Unfortunately her hemoglobin dropped from 13 on admission to 11 today therefore I am concerned about the possibility of an occult GI bleed particularly in the setting of her prior diagnosis of peptic ulcer disease although she had been on Protonix. Either way, she is at an elevated risk of bleeding given her age, her weight and prior history of peptic ulcer disease therefore we will discontinue baby aspirin at this point. If her hemoglobin continues to be stable we will continue with therapeutic Lovenox for another 24 hours at which point she could be discharged home on Plavix 75 mg daily and beta-yariel as well as sublingual nitroglycerin. Recommendations: -Start Plavix 75 mg daily. -Discontinue baby aspirin. -Continue Lovenox for 2 more doses if no evidence of bleeding and hemoglobin stable. -Start Toprol 25 mg daily. -Sublingual nitroglycerin as needed for ischemic symptoms. -Start Imdur 30 mg daily for angina prevention. -We will continue to follow with you. (2) Hyperlipidemia Is this a current diagnosis for this admission?: Yes Plan: She is already on 40 mg of Lipitor. We will continue with current management. (3) Hypertension Is this a current diagnosis for this admission?: Yes Plan: Her blood pressure is essentially at goal. We will continue with current management. (4) Diabetes mellitus Is this a current diagnosis for this admission?: Yes Plan: Further management per hospitalist team.
--- NOTE | 2020-08-07 10:03 | PDOC PROGRESS REPORT ---
Subjective Date:: 08/07/20 Subjective:: Patient displays her already known hearing loss. She states her belly is sore w here she is getting the injections (Lovenox). She only has 2 more doses remaining. Denies any chest pain. Breathing is comfortable. Reason For Visit: COPD EXACERBATION,NSTEMI Physical Exam Vital Signs: Temp Pulse Resp BP Pulse Ox 98.1 F 75 14 134/55 H 95 08/07/20 07:31 08/07/20 08:30 08/07/20 08:30 08/07/20 07:31 08/07/20 08:30 Intake & Output 08/06/20 08/07/20 08/08/20 06:59 06:59 06:59 Intake Total 798 Output Total 520 Balance 278 Weight 60.1 kg 61.9 kg General appearance: PRESENT: no acute distress, cooperative, well-developed Head exam: PRESENT: atraumatic, normocephalic Eye exam: PRESENT: conjunctiva pink. ABSENT: scleral icterus Ear exam: PRESENT: normal external ear exam. ABSENT: bleeding, drainage Mouth exam: PRESENT: moist, tongue midline Respiratory exam: PRESENT: rales - Very faint rales left base otherwise clear to auscultation bilaterally, symmetrical, unlabored. ABSENT: accessory muscle use, rhonchi, tachypnea, wheezes Cardiovascular exam: PRESENT: RRR, +S1, +S2. ABSENT: bradycardia, diastolic murmur, irregular rhythm, systolic murmur, tachycardia GI/Abdominal exam: PRESENT: distended - Slightly, normal bowel sounds, soft. ABSENT: guarding, tenderness Rectal exam: PRESENT: deferred Gentrourinary exam: ABSENT: indwelling catheter Extremities exam: ABSENT: pedal edema Neurological exam: PRESENT: alert, awake, oriented to person, oriented to situation, CN II-XII grossly intact - Hearing loss Psychiatric exam: PRESENT: flat affect. ABSENT: agitated, anxious Focused psych exam: ABSENT: delusional, paranoid, restlessness Skin exam: PRESENT: dry, normal color, warm Results Laboratory Results: 08/07/20 04:03 08/07/20 04:03 08/07/20 08/07/20 04:03 04:03 WBC 6.2 RBC 3.99 Hgb 11.1 L Hct 33.5 L MCV 84 MCH 27.9 MCHC 33.2 RDW 13.8 Plt Count 135 L Sodium 136.6 L Potassium 4.6 Chloride 105 Carbon Dioxide 29 Anion Gap 3 L BUN 32 H Creatinine 1.16 Est GFR ( Amer) 54 L Glucose 134 H Calcium 10.6 H 08/05/20 21:20 Blood Blood Culture (PCR) - Final Staphylococcus Species 08/05/20 08/06/20 08/06/20 21:20 03:09 09:05 Troponin I 0.013 0.743 1.070 08/06/20 08/07/20 16:52 04:03 Troponin I 1.010 0.699 Impressions: Chest X-Ray 08/05/20 21:09 IMPRESSION: No acute disease. Assessment and Plan - Diagnosis (1) NSTEMI (non-ST elevated myocardial infarction) Is this a current diagnosis for this admission?: Yes (2) COPD exacerbation Is this a current diagnosis for this admission?: Yes Plan: Patient presented with worsening of shortness of breath of 1 day duration Physical examination is significant for accessory respiratory muscle use, diffus e wheezing bilaterally Currently on room air and saturating mid 90s She was given breathing treatment, Solu-Medrol at the ED Chest x-ray showed no acute findings Continue Solu-Medrol 40 mg every 12 hourly Breathing treatment with DuoNeb's Placed her on Levaquin 750 mg p.o. daily Continue letter in respiratory parameters closely (3) Abnormal EKG Is this a current diagnosis for this admission?: Yes Plan: Patient currently admitted for COPD exacerbation Denies any chest pain EKG was significant for possible ST segment depression on lateral leads superimposed on ventricular ectopy Initial troponin is 0.013 Continue trending cardiac enzymes and EKG On telemetry monitoring Placed her on aspirin and high intensity statin Obtain lipid panel in the a.m. (4) Prolonged QT interval Is this a current diagnosis for this admission?: Yes (5) Hypertension Qualifiers: Hypertension type: essential hypertension Qualified Code(s): I10 - Essential (primary) hypertension Is this a current diagnosis for this admission?: Yes Plan: Blood pressure is optimally controlled Will continue home medication: Losartan On low-sodium diet (6) Hyperglycemia due to diabetes mellitus Is this a current diagnosis for this admission?: Yes (7) Diabetes mellitus type 2 in nonobese Is this a current diagnosis for this admission?: Yes (8) Hyperlipidemia Qualifiers: Hyperlipidemia type: unspecified Qualified Code(s): E78.5 - Hyperlipidemia, unspecified Is this a current diagnosis for this admission?: Yes Plan: Obtain updated lipid panel Patient on simvastatin at home Placed her on atorvastatin (9) Glaucoma Qualifiers: Glaucoma type: unspecified Laterality: unspecified laterality Qualified Code(s): H40.9 - Unspecified glaucoma Is this a current diagnosis for this admission?: Yes Plan: Continue home medications and follow-up with outpatient pulmonology (10) Hearing impaired Qualifiers: Hearing loss type: unspecified Laterality: unspecified laterality Qualified Code(s): H91.90 - Unspecified hearing loss, unspecified ear Is this a current diagnosis for this admission?: Yes - Plan Summary Summary: (1) NSTEMI (non-ST elevated myocardial infarction) Is this a current diagnosis for this admission?: Yes (2) COPD exacerbation Is this a current diagnosis for this admission?: Yes Plan: Patient presented with worsening of shortness of breath of 1 day duration Physical examination is significant for accessory respiratory muscle use, diffuse wheezing bilaterally Currently on room air and saturating mid 90s She was given breathing treatment, Solu-Medrol at the ED Chest x-ray showed no acute findings Continue Solu-Medrol 40 mg every 12 hourly Breathing treatment with DuoNeb's Placed her on Levaquin 750 mg p.o. daily Continue letter in respiratory parameters closely (3) Abnormal EKG Is this a current diagnosis for this admission?: Yes Plan: Patient currently admitted for COPD exacerbation Denies any chest pain EKG was significant for possible ST segment depression on lateral leads superimposed on ventricular ectopy Initial troponin is 0.013 Continue trending cardiac enzymes and EKG On telemetry monitoring Placed her on aspirin and high intensity statin Obtain lipid panel in the a.m. (4) Prolonged QT interval Is this a current diagnosis for this admission?: Yes (5) Hypertension Qualifiers: Hypertension type: essential hypertension Qualified Code(s): I10 - Essential (primary) hypertension Is this a current diagnosis for this admission?: Yes Plan: Blood pressure is optimally controlled Will continue home medication: Losartan On low-sodium diet (6) Hyperglycemia due to diabetes mellitus Is this a current diagnosis for this admission?: Yes (7) Diabetes mellitus type 2 in nonobese Is this a current diagnosis for this admission?: Yes (8) Hyperlipidemia Qualifiers: Hyperlipidemia type: unspecified Qualified Code(s): E78.5 - Hyperlipidemia, unspecified Is this a current diagnosis for this admission?: Yes Plan: Obtain updated lipid panel Patient on simvastatin at home Placed her on atorvastatin (9) Glaucoma Qualifiers: Glaucoma type: unspecified Laterality: unspecified laterality Qualified Code(s): H40.9 - Unspecified glaucoma Is this a current diagnosis for this admission?: Yes Plan: Continue home medications and follow-up with outpatient pulmonology (10) Hearing impaired Qualifiers: Hearing loss type: unspecified Laterality: unspecified laterality Qualified Code(s): H91.90 - Unspecified hearing loss, unspecified ear Is this a current diagnosis for this admission?: Yes 08/07/2020 NSTEMI-currently on Plavix (adverse effects of aspirin in the past), statin therapy and with respiratory status stable I have added low-dose metoprolol. No complaints of chest pain at this time. Troponins were trending down. Exacerbation of COPD-decrease scheduled nebulizer treatments. Continue as needed treatments. For tomorrow change to Breo inhaler or other combination inhaler therapy. Discontinue IV steroids and change to prednisone. Abnormal EKG-partly from NSTEMI but QT prolongation also noted. We will recheck in the morning. May need to alter haloperidol and duloxetine. Hypertension-blood pressures quite variable. No change in medications at this time. Diabetes-continue Lantus with premeal and sliding scale Humalog. Glaucoma-continue drops. Substitute home medications based on formulary Hearing loss-no acute intervention at this time - Time Time Spent with patient: 15-24 minutes Medications reviewed and adjusted accordingly: Yes Anticipated Discharge Disposition: Home with Home Health Anticipated Discharge Timeframe: Unknown
[2020-08-07] MEDS ORDERED: IPRATROPIUM/ALBUTEROL 0.5-2.5 MG/3 ML AMPUL NEB PRN (13:19)
[2020-08-07] MEDS: PANTOPRAZOLE SODIUM 40 MG TABLET.DR PO SCH (14:45)
[2020-08-07] MEDS: CHOLECALCIFEROL (D3) 1,000 UNIT (25 MCG) TABLET PO SCH (14:46)
[2020-08-07] MEDS ORDERED: GUAIFENESIN/D-METHORPHAN (200-20 MG) SYRUP 10 ML PO PRN (14:50)
[2020-08-07] MEDS: LATANOPROST 0.005% OPH SOLN 2.5 ML OU SCH (21:31)
[2020-08-07] MEDS: DULOXETINE HCL 20 MG CAPSULE.DR PO SCH (21:31)
[2020-08-07] MEDS: ATORVASTATIN CALCIUM 40 MG TABLET PO SCH (21:31)
[2020-08-07] MEDS: INSULIN GLARGINE,HUM.REC.ANLOG 1,000 UNIT/10 ML VIAL SUBCUT SCH (21:32)
[2020-08-08] MEDS: IPRATROPIUM/ALBUTEROL 0.5-2.5 MG/3 ML AMPUL NEB SCH ×4 (02:39→20:46)
[2020-08-08] MEDS: PANTOPRAZOLE SODIUM 40 MG TABLET.DR PO SCH (06:25)
[2020-08-08 06:59] LABS: BLOOD UREA NITROGEN 35 mg/dL (7-20); CALCIUM 10.1 mg/dL (8.4-10.2); GLUCOSE 79 mg/dL (75-110); POTASSIUM 4.2 mmol/L (3.6-5.0)
[2020-08-08 07:04] LABS: CARBON DIOXIDE 31 mmol/L (22-30); CHLORIDE 106 mmol/L (98-107)
[2020-08-08 07:09] LABS: ANION GAP 4 (5-19)
--- NOTE | 2020-08-08 07:21 | EKG REPORT ---
SEVERITY:- ABNORMAL ECG - SINUS RHYTHM ANTERIOR Q WAVES, OLD ANTEROSEPTAL PR LVH W/ REPOL ABNORMALITIES, POSSIBLE ISCHEMIA : Confirmed by: Jona Neely MD 08-Aug-2020 07:20:54
[2020-08-08] MEDS: ASCORBIC ACID 500 MG TABLET PO SCH (08:44)
[2020-08-08] MEDS: INSULIN LISPRO 100 UNIT/ML 3 ML VIAL SUBCUT SCH ×3 (08:45→16:12)
[2020-08-08] MEDS: CHOLECALCIFEROL (D3) 1,000 UNIT (25 MCG) TABLET PO SCH (08:45)
[2020-08-08] MEDS: HALOPERIDOL 0.5 MG TABLET PO SCH (08:47)
--- NOTE | 2020-08-08 09:27 | PDOC PROGRESS REPORT ---
Subjective Date:: 08/08/20 Subjective:: WADE PELAEZ is a 84 year old female with a history of COPD, type 2 diabetes mellitus, hypertension, hyperlipidemia and glaucoma who is consulted to our service for evaluation of abnormal EKG and elevated troponins. Unfortunately the patient cannot contribute much to her history as she does not remember much of it however she had been in her usual state of health until the day of admission when she developed sudden onset of shortness of breath to the point she sought medical attention as she was still severely short of breath at rest. In the emergency room she was noted to be hypertensive with blood pressure readings as high as 204/104 and significant wheezing. She was provided breathing treatments with some relief but she continued to have an oxygen requirement therefore she was admitted. This morning she feels much better and denies shortness of breath. She denies having a cardiovascular history in the past and specifically denies chest pain, orthopnea, PND, lower extremity edema, palpitations, syncope and presyncope. Her EKG on admission demonstrated ST depressions laterally which is a new finding when compared to a prior EKG in June 2014. The EKG now shows Q waves in the septal leads with persistent ST depressions laterally. Her troponin has been increasing and the most recent value is up to 0.743. The patient states that she is very sedentary at home. 08/08/2020: The patient had an uneventful night and continues to be asymptomatic from a cardiovascular standpoint. She is eager to go home. She is hemodynamically and electrically stable with blood pressure at goal. The decrease in her hemoglobin was discussed with the hospitalist and he was made aware of this change, after discussing the case with him and, given her elevated risk of GI bleed, it was decided to discontinue Lovenox and baby aspirin particularly when she has a his tory of peptic ulcer disease that was apparently triggered by prior use of aspirin. It had been decided to proceed with medical management of her NSTEMI. Her main complaint today is cough. Her telemetry shows normal sinus rhythm with PVCs and artifact. Physical exam on 08/08/2020: GENERAL: Sitting up in bed without any complaints and asking to go home. Pleasant and conversational. Not in acute distress. Well groomed and well developed. HEENT: Normocephalic, atraumatic. Pupils equal. Sclerae anicteric. Oropharynx moist. NECK: No JVD. No carotid bruits. LUNGS: Clear to auscultation bilaterally. Normal respiratory effort without the use of accessory muscles or intercostal retractions. CARDIOVASCULAR: Regular rate and rhythm, normal S1 and S2 without rubs, or gallops. 2 out of 6 systolic murmur throughout the precordium. PMI not displaced. ABDOMEN: No masses or tenderness to palpation. No bruit. No splenomegaly or hepatomegaly. No abdominal aorta bruit noted. EXTREMITIES: No edema, no cyanosis, no clubbing. +2 pulses femoral and pedal pulses bilaterally. SKIN: No lesions or rashes. MUSCULOSKELETAL: No chest tenderness to palpation. NEUROLOGIC: Nonfocal. No gross sensory or motor deficits bilateral upper or lower extremities. Cardiac studies: Echocardiogram on 08/06/2020: -EF 55 to 60%. -Mild hypokinesis of the mid and distal septum. -Trace MR, trace TR, trace PI. -No prior studies for comparison. Reason For Visit: COPD EXACERBATION,NSTEMI Physical Exam Vital Signs: Temp Pulse Resp BP Pulse Ox 98.4 F 76 16 164/63 H 99 08/08/20 07:36 08/08/20 08:18 08/08/20 08:18 08/08/20 07:36 08/08/20 08:18 Intake & Output 08/07/20 08/08/20 08/09/20 06:59 06:59 06:59 Intake Total 798 664 780 Output Total 520 1320 Balance 278 -656 780 Weight 61.9 kg 62.5 kg Results Laboratory Results: 08/07/20 04:03 08/08/20 04:32 08/08/20 04:32 Sodium 140.6 Potassium 4.2 Chloride 106 Carbon Dioxide 31 H Anion Gap 4 L BUN 35 H Creatinine 1.09 Est GFR ( Amer) 58 L Glucose 79 Calcium 10.1 Magnesium 2.4 H 08/05/20 21:20 Blood Blood Culture (PCR) - Final Staphylococcus Species 08/05/20 08/06/20 08/06/20 21:20 03:09 09:05 Troponin I 0.013 0.743 1.070 08/06/20 08/07/20 16:52 04:03 Troponin I 1.010 0.699 Impressions: Chest X-Ray 08/05/20 21:09 IMPRESSION: No acute disease. 08/07/20 04:03 08/08/20 04:32 MCV 84 fl (80-97) 08/07/20 04:03 MCH 27.9 pg (27.0-33.4) 08/07/20 04:03 MCHC 33.2 g/dL (32.0-36.0) 08/07/20 04:03 RDW 13.8 % (11.5-14.0) 08/07/20 04:03 Seg Neutrophils % 72.1 % (42-78) 08/06/20 03:09 Chloride 106 mmol/L (98-107) 08/08/20 04:32 Carbon Dioxide 31 mmol/L (22-30) H 08/08/20 04:32 Anion Gap 4 (5-19) L 08/08/20 04:32 Est GFR ( Amer) 58 (>60) L 08/08/20 04:32 Glucose 79 mg/dL (75-110) 08/08/20 04:32 Calcium 10.1 mg/dL (8.4-10.2) 08/08/20 04:32 Magnesium 2.4 mg/dL (1.6-2.3) H 08/08/20 04:32 Total Bilirubin 0.6 mg/dL (0.2-1.3) 08/05/20 21:20 AST 36 U/L (14-36) 08/05/20 21:20 Alkaline Phosphatase 79 U/L (38-126) 08/05/20 21:20 Total Protein 7.5 g/dL (6.3-8.2) 08/05/20 21:20 Albumin 4.5 g/dL (3.5-5.0) 08/05/20 21:20 Triglycerides 127 mg/dL (<150) 08/06/20 03:09 Cholesterol 155.83 mg/dL (0-200) 08/06/20 03:09 LDL Cholesterol Direct 68 mg/dL (<100) 08/06/20 03:09 VLDL Cholesterol 25.0 mg/dL (10-31) 08/06/20 03:09 HDL Cholesterol 59 mg/dL (>40) 08/06/20 03:09 Urine Color YELLOW 08/05/20 23:50 Urine Appearance CLEAR 08/05/20 23:50 Urine pH 5.0 (5.0-9.0) 08/05/20 23:[address] 1.019 08/05/20 23:50 Urine Protein 100 mg/dL (NEGATIVE) H 08/05/20 23:50 Urine Glucose (UA) NEGATIVE mg/dL (NEGATIVE) 08/05/20 23:50 Urine Ketones NEGATIVE mg/dL (NEGATIVE) 08/05/20 23:50 Urine Blood NEGATIVE (NEGATIVE) 08/05/20 23:50 Urine Nitrite NEGATIVE (NEGATIVE) 08/05/20 23:50 Ur Leukocyte Esterase SMALL (NEGATIVE) H 08/05/20 23:50 Urine WBC (Auto) 15 /HPF 08/05/20 23:50 Urine RBC (Auto) 2 /HPF 08/05/20 23:50 08/05/20 21:20 Blood Blood Culture (PCR) - Final Staphylococcus Species 08/05/20 08/06/20 08/06/20 21:20 03:09 09:05 Troponin I 0.013 0.743 1.070 08/06/20 08/07/20 16:52 04:03 Troponin I 1.010 0.699 Current Medication List Generic Name Dose Route Start Last Admin Trade Name Freq PRN Reason Stop Dose Admin Acetaminophen 650 mg 08/06/20 01:57 Acetaminophen 325 Mg Tablet PO 09/05/20 01:56 Q4HP PRN FEVER >101 Albuterol/Ipratropium 3 ml 08/07/20 14:00 08/08/20 08:18 Ipratropium/Albuterol 0.5-2.5 Mg/3 Ml Ampul NEB 09/06/20 13:59 3 ml RTQ6 RUPESH Administration Albuterol/Ipratropium 3 ml 08/07/20 13:19 Ipratropium/Albuterol 0.5-2.5 Mg/3 Ml Ampul NEB 09/06/20 13:18 RTQ3HP PRN SHORTNESS OF BREATH Ascorbic Acid 500 mg 08/06/20 15:00 08/08/20 08:44 Ascorbic Acid 500 Mg Tablet PO 09/05/20 14:59 500 mg Q2D@0800 RUPESH Administration Atorvastatin Calcium 40 mg 08/06/20 22:00 08/07/20 21:31 Atorvastatin Calcium 40 Mg Tablet PO 09/05/20 21:59 40 mg QHS RUPESH Administration Brimonidine Tartrate 1 drop 08/06/20 18:00 08/07/20 18:11 Brimonidine Tartrate 0.2% Oph Soln 5 Ml OU 09/05/20 17:59 1 drop BID RUPESH Administration Cholecalciferol 2,000 unit 08/06/20 15:00 08/08/20 08:45 Cholecalciferol (D3) 1,000 Unit (25 Mcg) Tablet PO 09/05/20 14:59 2,000 unit Q2D@0800 RUPESH Administration Cholecalciferol 2,000 unit 08/07/20 13:15 08/07/20 14:46 Cholecalciferol (D3) 1,000 Unit (25 Mcg) Tablet PO 09/06/20 13:14 2,000 unit Q2D RUPESH Administration Clopidogrel Bisulfate 75 mg 08/06/20 10:00 08/07/20 09:29 Clopidogrel Bisulfate 75 Mg Tablet PO 09/05/20 09:59 75 mg DAILY RUPESH Administration Dextrose 12.5 gm 08/06/20 02:05 Dextrose 50%-Water 25 Gm/50 Ml Disp.Syrin IV 09/05/20 02:04 PRN PRN FOR BG 50-69 IN ALERT PATIENT Protocol Dextrose 25 gm 08/06/20 02:05 Dextrose 50%-Water 25 Gm/50 Ml Disp.Syrin IV 09/05/20 02:04 PRN PRN PER PROTOCOL Protocol Docusate Sodium 100 mg 08/06/20 18:00 08/07/20 18:10 Docusate Sodium 100 Mg Capsule PO 09/05/20 17:59 100 mg BID RUPESH Administration Duloxetine HCl 20 mg 08/06/20 22:00 08/07/20 21:31 Duloxetine Hcl 20 Mg Capsule.Dr PO 09/05/20 21:59 20 mg QHS RUPESH Administration Enoxaparin Sodium 60 mg 08/06/20 10:00 08/07/20 21:27 Enoxaparin Sodium Inj 60 Mg/0.6 Ml Disp.Syrin SUBCUT 08/08/20 21:59 Not Given Q12 RUPESH Glucagon 1 mg 08/06/20 02:05 Glucagon,Human Recomb 1 Mg Inj IM 09/05/20 02:04 PRN PRN Evaluate for BG < 70 Protocol Glucose 15 gm 08/06/20 02:05 Dextrose 40% Gel 15 Gm Tube PO 09/05/20 02:04 PRN PRN FOR BG 50-69 IN ALERT PATIENT Protocol Glucose 30 gm 08/06/20 02:05 Dextrose 40% Gel 15 Gm Tube PO 09/05/20 02:04 PRN PRN FOR BG < 50 IN ALERT PATIENT Protocol Guaifenesin/Dextromethorphan 10 ml 08/07/20 14:50 Guaifenesin/D-Methorphan (200-20 Mg) Syrup 10 Ml PO 09/06/20 14:49 QIDP PRN COUGH Haloperidol 0.125 mg 08/07/20 08:00 08/08/20 08:47 Haloperidol 0.5 Mg Tablet PO 09/06/20 07:59 0.125 mg QAM RUPESH Administration Insulin Glargine 30 unit 08/06/20 22:00 08/07/20 21:32 Insulin Glargine,Hum.Rec.Anlog 1,000 Unit/10 Ml Vial SUBCUT 09/05/20 21:59 30 unit QHS RUPESH Administration Insulin Human Lispro 12 unit 08/06/20 16:00 08/08/20 08:45 Insulin Lispro 100 Unit/Ml 3 Ml Vial SUBCUT 09/05/20 15:59 12 unit AC RUPESH Administration Insulin Human Regular 0 - 12 unit 08/06/20 08:00 08/07/20 21:26 Insulin Reg, Human 100 Unit/Ml 3 Ml Vial (Pyx) SUBCUT 09/05/20 07:59 Not Given ACHS [facility] Protocol Latanoprost 1 drop 08/06/20 22:00 08/07/20 21:31 Latanoprost 0.005% Oph Soln 2.5 Ml OU 09/05/20 21:59 1 drop QHS RUPESH Administration Losartan Potassium 25 mg 08/06/20 10:00 08/07/20 09:28 Losartan Potassium 25 Mg Tablet PO 09/05/20 09:59 25 mg DAILY RUPESH Administration Metoprolol Succinate 25 mg 08/08/20 10:00 Metoprolol Succinate 25 Mg Tab.Sr.24h PO 09/07/20 09:59 DAILY [facility] Ondansetron HCl 4 mg 08/06/20 01:57 Ondansetron Hcl Inj/Pf 4 Mg/2 Ml Sdv IV 09/05/20 01:56 Q8HP PRN FOR NAUSEA/VOMITING Pantoprazole Sodium 40 mg 08/07/20 15:00 08/08/20 06:25 Pantoprazole Sodium 40 Mg Tablet.Dr PO 09/06/20 14:59 40 mg Q6AM RUPESH Administration Prednisone 40 mg 08/08/20 10:00 Prednisone 20 Mg Tablet PO 09/07/20 09:59 DAILY [facility] Timolol Maleate 1 drop 08/06/20 18:00 08/07/20 18:11 Timolol Maleate 0.5% Oph Soln 5 Ml OU 09/05/20 17:59 1 drop BID RUPESH Administration Discontinued Medications Generic Name Dose Route Start Last Admin Trade Name Freq PRN Reason Stop Dose Admin Albuterol/Ipratropium 3 ml 08/05/20 21:16 08/05/20 21:30 Ipratropium/Albuterol 0.5-2.5 Mg/3 Ml Ampul NEB 08/05/20 21:17 3 ml NOW ONE Administration Albuterol/Ipratropium 3 ml 08/05/20 22:10 08/05/20 22:30 Ipratropium/Albuterol 0.5-2.5 Mg/3 Ml Ampul NEB 08/05/20 22:11 3 ml NOW ONE Administration Albuterol/Ipratropium 3 ml 08/06/20 04:00 08/07/20 11:43 Ipratropium/Albuterol 0.5-2.5 Mg/3 Ml Ampul NEB 09/05/20 03:59 3 ml RTQ4 RUPESH Administration Aspirin 81 mg 08/06/20 10:00 08/06/20 09:54 Aspirin 81 Mg Tablet, Chewable PO 09/05/20 09:59 81 mg DAILY RUPESH Administration Aspirin 324 mg 08/06/20 05:30 08/06/20 05:25 Aspirin 81 Mg Tablet, Chewable PO 08/06/20 05:31 324 mg NOW ONE Administration Calcium Carbonate 600 mg 08/06/20 15:00 08/06/20 16:57 Calcium Carbonate 600 Mg Tablet PO 09/05/20 14:59 600 mg Q2D@0800 RUPESH Administration Enoxaparin Sodium 40 mg 08/06/20 10:00 Enoxaparin Sodium Inj 40 Mg/0.4 Ml Disp.Syrin SUBCUT 09/05/20 09:59 DAILY [facility] Insulin Glargine 25 unit 08/06/20 22:00 Insulin Glargine,Hum.Rec.Anlog 1,000 Unit/10 Ml Vial SUBCUT 09/05/20 21:59 QHS [facility] Insulin Glargine 16 unit 08/06/20 22:00 Insulin Glargine,Hum.Rec.Anlog 1,000 Unit/10 Ml Vial SUBCUT 09/05/20 21:59 QHS [facility] Levofloxacin 750 mg 08/06/20 03:00 08/06/20 03:23 Levofloxacin 750 Mg Tablet PO 08/06/20 03:01 750 mg NOW ONE Administration Levofloxacin 500 mg 08/07/20 08:00 Levofloxacin 500 Mg Tablet PO 08/14/20 07[facility]59 [facility] Methylprednisolone Sodium Succinate 125 mg 08/05/20 22:11 08/05/20 22:34 Methylprednisolone Inj 125 Mg/2 Ml Sdv IV 08/05/20 22:12 125 mg NOW ONE Administration Methylprednisolone Sodium Succinate 40 mg 08/06/20 10:00 08/07/20 09:30 Methylprednisolone Inj 40 Mg/1 Ml Sdv IV 09/05/20 09:59 40 mg Q12 RUPESH Administration Assessment & Plan - Diagnosis (1) NSTEMI (non-ST elevated myocardial infarction) Is this a current diagnosis for this admission?: Yes Plan: The patient has done very well since admission, no recurrence of ischemic symptoms, normal ejection fraction on echocardiogram with mild hypokinesis of the left ventricular septum. Her telemetry is stable and without atrial or ventricular dysrhythmias except PVCs. She is eager to go home. Unfortunately her hemoglobin dropped from 13 on admission to 11 which is concerning for the possibility of occult GI bleed particularly given her age, gender, body size and prior history of peptic ulcer disease that was apparently triggered by the prior use of aspirin therefore her Lovenox and baby aspirin were discontinued yesterday and she has done well. Her main issue today is cough. Recommendations: -Continue with Plavix 75 mg daily. -We will continue to avoid baby aspirin given her prior history of peptic ulcer disease and her change in hemoglobin although there is no gross evidence of GI bleed. -Start Imdur 30 mg daily for angina prevention. -The patient may be discharged home from the cardiovascular standpoint. -The patient will follow up in our office in [place] on 08/16/2020, the office will call her with appointment time. (2) Hyperlipidemia Qualifiers: Hyperlipidemia type: unspecified Qualified Code(s): E78.5 - Hyperlipidemia, unspecified Is this a current diagnosis for this admission?: Yes Plan: She is already on 40 mg of Lipitor. We will continue with current management. (3) Hypertension Qualifiers: Hypertension type: essential hypertension Qualified Code(s): I10 - Essential (primary) hypertension Is this a current diagnosis for this admission?: Yes Plan: Her blood pressure is essentially at goal. We will continue with current management. (4) Diabetes mellitus Is this a current diagnosis for this admission?: Yes Plan: Further management per hospitalist team.
[2020-08-08] MEDS ORDERED: PREDNISONE 20 MG TABLET PO SCH (10:00)
[2020-08-08] MEDS: DOCUSATE SODIUM 100 MG CAPSULE PO SCH ×2 (11:07→18:27)
[2020-08-08] MEDS: METOPROLOL SUCCINATE 25 MG TAB.SR.24H PO SCH (11:08)
[2020-08-08] MEDS: CLOPIDOGREL BISULFATE 75 MG TABLET PO SCH (11:08)
[2020-08-08] MEDS: ENOXAPARIN SODIUM INJ 60 MG/0.6 ML DISP.SYRIN SUBCUT SCH (11:13)
[2020-08-08] MEDS: BRIMONIDINE TARTRATE 0.2% OPH SOLN 5 ML OU SCH ×2 (11:37→18:24)
[2020-08-08] MEDS: TIMOLOL MALEATE 0.5% OPH SOLN 5 ML OU SCH ×2 (11:38→18:26)
[2020-08-08] MEDS: INSULIN REG, HUMAN 100 UNIT/ML 3 ML VIAL (PYX) SUBCUT SCH ×4 (12:00→22:33)
[2020-08-08] MEDS: LOSARTAN POTASSIUM 25 MG TABLET PO SCH (12:01)
--- NOTE | 2020-08-08 13:25 | PDOC PROGRESS REPORT ---
Subjective Date:: 08/08/20 Subjective:: The patient is coughing frequently today. Coarse bark-like cough. It is not productive of any sputum. Her daughter reports that she does chew snuff. She constantly has it in her cheek. She even sleeps with it. She is oxygenating adequately on room air. Her daughter is at the bedside. Reason For Visit: COPD EXACERBATION,NSTEMI Physical Exam Vital Signs: Temp Pulse Resp BP Pulse Ox 98.4 F 76 16 164/63 H 99 08/08/20 07:36 08/08/20 08:18 08/08/20 08:18 08/08/20 07:36 08/08/20 08:18 Intake & Output 08/07/20 08/08/20 08/09/20 06:59 06:59 06:59 Intake Total 798 664 780 Output Total 520 1320 Balance 278 -656 780 Weight 61.9 kg 62.5 kg General appearance: PRESENT: cooperative, mild distress, well-developed Head exam: PRESENT: atraumatic, normocephalic Ear exam: PRESENT: normal external ear exam. ABSENT: bleeding, drainage Mouth exam: PRESENT: moist, tongue midline Respiratory exam: PRESENT: clear to auscultation shannon, symmetrical, unlabored, other - Barking congested cough present. ABSENT: rales, rhonchi, tachypnea, wheezes Cardiovascular exam: PRESENT: RRR, +S1, +S2. ABSENT: bradycardia, diastolic murmur, irregular rhythm, systolic murmur, tachycardia GI/Abdominal exam: PRESENT: normal bowel sounds, soft, other - protuberant abdomen. ABSENT: tenderness Rectal exam: PRESENT: deferred Gentrourinary exam: ABSENT: indwelling catheter Neurological exam: PRESENT: alert, awake, oriented to person, oriented to situation, motor sensory deficit - very hard of hearing Psychiatric exam: PRESENT: appropriate affect. ABSENT: agitated, anxious Focused psych exam: ABSENT: delusional, paranoid, restlessness Results Laboratory Results: 08/07/20 04:03 08/08/20 04:32 08/08/20 04:32 Sodium 140.6 Potassium 4.2 Chloride 106 Carbon Dioxide 31 H Anion Gap 4 L BUN 35 H Creatinine 1.09 Est GFR ( Amer) 58 L Glucose 79 Calcium 10.1 Magnesium 2.4 H 01/17/21 21:20 Blood Blood Culture (PCR) - Final Staphylococcus Species 08/05/20 21:20 Blood Blood Culture - Final Staphylococcus Warneri 08/05/20 08/06/20 08/06/20 21:20 03:09 09:05 Troponin I 0.013 0.743 1.070 08/06/20 08/07/20 16:52 04:03 Troponin I 1.010 0.699 Assessment and Plan - Diagnosis (1) NSTEMI (non-ST elevated myocardial infarction) Is this a current diagnosis for this admission?: Yes (2) COPD exacerbation Is this a current diagnosis for this admission?: Yes (3) Abnormal EKG Is this a current diagnosis for this admission?: Yes (4) Prolonged QT interval Is this a current diagnosis for this admission?: Yes (5) Hypertension Qualifiers: Hypertension type: essential hypertension Qualified Code(s): I10 - Essentia l (primary) hypertension Is this a current diagnosis for this admission?: Yes (6) Hyperglycemia due to diabetes mellitus Is this a current diagnosis for this admission?: Yes (7) Diabetes mellitus type 2 in nonobese Is this a current diagnosis for this admission?: Yes (8) Hyperlipidemia Qualifiers: Hyperlipidemia type: unspecified Qualified Code(s): E78.5 - Hyperlipidemia, unspecified Is this a current diagnosis for this admission?: Yes (9) Glaucoma Qualifiers: Glaucoma type: unspecified Laterality: unspecified laterality Qualified Code(s): H40.9 - Unspecified glaucoma Is this a current diagnosis for this admission?: Yes (10) Hearing impaired Qualifiers: Hearing loss type: unspecified Laterality: unspecified laterality Qualified Code(s): H91.90 - Unspecified hearing loss, unspecified ear Is this a current diagnosis for this admission?: Yes - Plan Summary Summary: (1) NSTEMI (non-ST elevated myocardial infarction) Is this a current diagnosis for this admission?: Yes (2) COPD exacerbation Is this a current diagnosis for this admission?: Yes Plan: Patient presented with worsening of shortness of breath of 1 day duration Physical examination is significant for accessory respiratory muscle use, diffuse wheezing bilaterally Currently on room air and saturating mid 90s She was given breathing treatment, Solu-Medrol at the ED Chest x-ray showed no acute findings Continue Solu-Medrol 40 mg every 12 hourly Breathing treatment with DuoNeb's Placed her on Levaquin 750 mg p.o. daily Continue letter in respiratory parameters closely (3) Abnormal EKG Is this a current diagnosis for this admission?: Yes Plan: Patient currently admitted for COPD exacerbation Denies any chest pain EKG was significant for possible ST segment depression on lateral leads superimposed on ventricular ectopy Initial troponin is 0.013 Continue trending cardiac enzymes and EKG On telemetry monitoring Placed her on aspirin and high intensity statin Obtain lipid panel in the a.m. (4) Prolonged QT interval Is this a current diagnosis for this admission?: Yes (5) Hypertension Qualifiers: Hypertension type: essential hypertension Qualified Code(s): I10 - Essential (primary) hypertension Is this a current diagnosis for this admission?: Yes Plan: Blood pressure is optimally controlled Will continue home medication: Losartan On low-sodium diet (6) Hyperglycemia due to diabetes mellitus Is this a current diagnosis for this admission?: Yes (7) Diabetes mellitus type 2 in nonobese Is this a current diagnosis for this admission?: Yes (8) Hyperlipidemia Qualifiers: Hyperlipidemia type: unspecified Qualified Code(s): E78.5 - Hyperlipidemia, unspecified Is this a current diagnosis for this admission?: Yes Plan: Obtain updated lipid panel Patient on simvastatin at home Placed her on atorvastatin (9) Glaucoma Qualifiers: Glaucoma type: unspecified Laterality: unspecified laterality Qualified Code(s): H40.9 - Unspecified glaucoma Is this a current diagnosis for this admission?: Yes Plan: Continue home medications and follow-up with outpatient pulmonology (10) Hearing impaired Qualifiers: Hearing loss type: unspecified Laterality: unspecified laterality Qualified Code(s): H91.90 - Unspecified hearing loss, unspecified ear Is this a current diagnosis for this admission?: Yes 08/07/2020 NSTEMI-currently on Plavix (adverse effects of aspirin in the past), statin therapy and with respiratory status stable I have added low-dose metoprolol. No complaints of chest pain at this time. Troponins were trending down. Exacerbation of COPD-decrease scheduled nebulizer treatments. Continue as needed treatments. For tomorrow change to Breo inhaler or other combination inhaler therapy. Discontinue IV steroids and change to prednisone. Abnormal EKG-partly from NSTEMI but QT prolongation also noted. We will recheck in the morning. May need to alter haloperidol and duloxetine. Hypertension-blood pressures quite variable. No change in medications at this t oscar. Diabetes-continue Lantus with premeal and sliding scale Humalog. Glaucoma-continue drops. Substitute home medications based on formulary Hearing loss-no acute intervention at this time 08/08/2020 NSTEMI-appreciate cardiology input. Per their suggestion I have added Imdur 30 mg daily. No evidence of acute coronary symptoms. Abnormal EKG-QT is slightly improved. Hyperlipidemia-continue statin therapy Exacerbation of COPD-I do long discussion with the patient's daughter. Evidently she has been tried on multiple outpatient combination inhalers. For a myriad of reasons she is unable to adequately use inhalers for meaningful therapy. Because of this we will likely rely on the nebulizer for scheduled and as needed treatments while at home. I have added budesonide to the regimen and discontinue systemic steroids. There is clearly a bronchitis component to her COPD. The daughter states that with exacerbations of COPD her primary care provider always treats for bronchitis. I will start doxycycline therapy today. We will also repeat a chest x-ray. Tessalon Perles have been added to help with the cough. Hypertension-blood pressures are still quite variable. Will monitor with the addition of Imdur. Diabetes-continue current insulin regimen. Accu-Cheks still vary considerably. They can be normal and her latest check today was 184. This could also be attributed to fluctuations in the diet. The patient utilizes oral tobacco products. She has been doing so since she was a child. Her daughter reports that she in fact sleeps with snuff in her cheek. It is certainly possible that she is having some silent aspiration while she sleeps. We discussed the possibility of cessation but at this point the patient's daughter states that her mother will do what ever she wants and at 84 years old and it is unknown if cessation at this stage will have any true clinical impact. - Time Time Spent with patient: 15-24 minutes Medications reviewed and adjusted accordingly: Yes Anticipated Discharge Disposition: Home with Home Health Anticipated Discharge Timeframe: within 48 hours
--- NOTE | 2020-08-08 13:30 | RADIOLOGY REPORT (SQ) ---
EXAM DESCRIPTION: CHEST SINGLE VIEW IMAGES COMPLETED DATE/TIME: 08/08/2020 1:15 pm REASON FOR STUDY: copd resp failure COMPARISON: 08/05/2020 EXAM PARAMETERS: NUMBER OF VIEWS: One view. TECHNIQUE: Single frontal radiographic view of the chest acquired. RADIATION DOSE: NA LIMITATIONS: None. FINDINGS: LUNGS AND PLEURA: No opacities, masses or pneumothorax. No pleural effusion. MEDIASTINUM AND HILAR STRUCTURES: No masses. Contour normal. HEART AND VASCULAR STRUCTURES: Heart normal in size. Normal vasculature. BONES: No acute findings. HARDWARE: None in the chest. OTHER: No other significant finding. IMPRESSION: NO ACUTE RADIOGRAPHIC FINDING IN THE CHEST. TECHNICAL DOCUMENTATION: JOB ID: [id number] [employer]- All Rights Reserved Reading location - IP/workstation name: [email or web address]
[2020-08-08] MEDS: BENZONATATE 100 MG CAPSULE PO SCH ×2 (14:19→22:28)
[2020-08-08] MEDS: DOXYCYCLINE HYCLATE 100 MG in DEXTROSE 5%-WATER 250 ML IV SCH ×2 (15:57→23:49)
[2020-08-08] MEDS: ISOSORBIDE MONONITRATE 30 MG TAB.ER.24H PO SCH (16:03)
[2020-08-08] MEDS: BUDESONIDE NEB 0.5 MG/2 ML AMPUL NEB SCH (20:46)
[2020-08-08] MEDS: DULOXETINE HCL 20 MG CAPSULE.DR PO SCH (22:28)
[2020-08-08] MEDS: ATORVASTATIN CALCIUM 40 MG TABLET PO SCH (22:28)
[2020-08-08] MEDS: INSULIN GLARGINE,HUM.REC.ANLOG 1,000 UNIT/10 ML VIAL SUBCUT SCH (22:29)
[2020-08-08] MEDS: LATANOPROST 0.005% OPH SOLN 2.5 ML OU SCH (22:33)
[2020-08-09] MEDS: IPRATROPIUM/ALBUTEROL 0.5-2.5 MG/3 ML AMPUL NEB SCH ×4 (02:38→20:42)
[2020-08-09] MEDS: BENZONATATE 100 MG CAPSULE PO SCH ×3 (05:07→21:11)
[2020-08-09] MEDS: PANTOPRAZOLE SODIUM 40 MG TABLET.DR PO SCH (05:07)
[2020-08-09 06:41] LABS: BLOOD UREA NITROGEN 32 mg/dL (7-20); CALCIUM 9.9 mg/dL (8.4-10.2); GLUCOSE 108 mg/dL (75-110); POTASSIUM 4.4 mmol/L (3.6-5.0)
[2020-08-09 06:48] LABS: CARBON DIOXIDE 30 mmol/L (22-30); CHLORIDE 104 mmol/L (98-107)
[2020-08-09 07:02] LABS: ANION GAP 4 (5-19)
[2020-08-09] MEDS: BUDESONIDE NEB 0.5 MG/2 ML AMPUL NEB SCH ×2 (08:19→20:42)
[2020-08-09] MEDS: INSULIN LISPRO 100 UNIT/ML 3 ML VIAL SUBCUT SCH ×2 (09:10→11:05)
[2020-08-09] MEDS: DOCUSATE SODIUM 100 MG CAPSULE PO SCH ×2 (09:11→17:19)
[2020-08-09] MEDS: METOPROLOL SUCCINATE 25 MG TAB.SR.24H PO SCH (09:11)
[2020-08-09] MEDS: CLOPIDOGREL BISULFATE 75 MG TABLET PO SCH (09:11)
[2020-08-09] MEDS: ISOSORBIDE MONONITRATE 30 MG TAB.ER.24H PO SCH (09:11)
[2020-08-09] MEDS: HALOPERIDOL 0.5 MG TABLET PO SCH (09:11)
[2020-08-09] MEDS: INSULIN REG, HUMAN 100 UNIT/ML 3 ML VIAL (PYX) SUBCUT SCH ×4 (09:12→21:12)
[2020-08-09] MEDS: LOSARTAN POTASSIUM 25 MG TABLET PO SCH (09:12)
[2020-08-09] MEDS: BRIMONIDINE TARTRATE 0.2% OPH SOLN 5 ML OU SCH ×2 (09:12→17:19)
[2020-08-09] MEDS: TIMOLOL MALEATE 0.5% OPH SOLN 5 ML OU SCH ×2 (09:18→17:19)
[2020-08-09] MEDS: DOXYCYCLINE HYCLATE 100 MG in DEXTROSE 5%-WATER 250 ML IV SCH ×2 (09:23→21:11)
--- NOTE | 2020-08-09 11:34 | PDOC PROGRESS REPORT ---
Subjective Date:: 08/09/20 Subjective:: The patient's daughter is at the bedside. She reports that there has been a significant improvement in the patient's cough with the addition of antibiotics however the patient is confused today. The patient's daughter also reports that when the patient is ill episodes of confusion are not uncommon and the usually clear within 24 to 48 hours. Reason For Visit: COPD EXACERBATION,NSTEMI Physical Exam Vital Signs: Temp Pulse Resp BP Pulse Ox 98.1 F 76 16 169/68 H 91 L 08/09/20 08:39 08/09/20 08:19 08/09/20 08:19 08/09/20 07:27 08/09/20 08:19 Intake & Output 08/08/20 08/09/20 08/10/20 06:59 06:59 06:59 Intake Total 664 2731 Output Total 1320 2200 Balance -656 531 Weight 62.5 kg 62.8 kg General appearance: PRESENT: no acute distress, cooperative, hard of hearing Head exam: PRESENT: atraumatic, normocephalic Ear exam: PRESENT: normal external ear exam. ABSENT: bleeding, drainage Teeth exam: PRESENT: poor dentation Respiratory exam: PRESENT: clear to auscultation shannon, symmetrical, unlabored. ABSENT: chest wall tenderness, rales, rhonchi, tachypnea, wheezes Cardiovascular exam: PRESENT: RRR, +S1, +S2, systolic murmur - 3/6. ABSENT: bradycardia, diastolic murmur, irregular rhythm, tachycardia GI/Abdominal exam: PRESENT: normal bowel sounds, soft. ABSENT: distended, tenderness Rectal exam: PRESENT: deferred Gentrourinary exam: ABSENT: indwelling catheter Extremities exam: ABSENT: pedal edema Neurological exam: PRESENT: alert, awake, oriented to person, CN II-XII grossly intact - Except hearing. ABSENT: oriented to place, oriented to time, oriented to situation Psychiatric exam: PRESENT: flat affect. ABSENT: agitated, anxious Focused psych exam: ABSENT: catatonic, delusional, paranoid, restlessness Skin exam: PRESENT: dry, normal color, warm. ABSENT: rash Results Laboratory Results: 08/07/20 04:03 08/09/20 04:17 08/09/20 04:17 Sodium 138.3 Potassium 4.4 Chloride 104 Carbon Dioxide 30 Anion Gap 4 L BUN 32 H Creatinine 1.10 Est GFR ( Amer) 57 L Glucose 108 Calcium 9.9 Magnesium 2.4 H 08/05/20 21:20 Blood Blood Culture (PCR) - Final Staphylococcus Species 08/05/20 21:20 Blood Blood Culture - Final Staphylococcus Warneri 08/05/20 08/06/20 08/06/20 21:20 03:09 09:05 Troponin I 0.013 0.743 1.070 08/06/20 08/07/20 16:52 04:03 Troponin I 1.010 0.699 Impressions: Chest X-Ray 08/08/20 00:00 IMPRESSION: NO ACUTE RADIOGRAPHIC FINDING IN THE CHEST. Assessment and Plan - Diagnosis (1) NSTEMI (non-ST elevated myocardial infarction) Is this a current diagnosis for this admission?: Yes (2) COPD exacerbation Is this a current diagnosis for this admission?: Yes (3) Abnormal EKG Is this a current diagnosis for this admission?: Yes (4) Prolonged QT interval Is this a current diagnosis for this admission?: Yes (5) Hypertension Qualifiers: Hypertension type: essential hypertension Qualified Code(s): I10 - Essential (primary) hypertension Is this a current diagnosis for this admission?: Yes (6) Hyperglycemia due to diabetes mellitus Is this a current diagnosis for this admission?: Yes (7) Diabetes mellitus type 2 in nonobese Is this a current diagnosis for this admission?: Yes (8) Hyperlipidemia Qualifiers: Hyperlipidemia type: unspecified Qualified Code(s): E78.5 - Hyperlipidemia, unspecified Is this a current diagnosis for this admission?: Yes (9) Glaucoma Qualifiers: Glaucoma type: unspecified Laterality: unspecified laterality Qualified Code(s): H40.9 - Unspecified glaucoma Is this a current diagnosis for this admission?: Yes (10) Hearing impaired Qualifiers: Hearing loss type: unspecified Laterality: unspecified laterality Qualified Code(s): H91.90 - Unspecified hearing loss, unspecified ear Is this a current diagnosis for this admission?: Yes - Plan Summary Summary: (1) NSTEMI (non-ST elevated myocardial infarction) Is this a current diagnosis for this admission?: Yes (2) COPD exacerbation Is this a current diagnosis for this admission?: Yes Plan: Patient presented with worsening of shortness of breath of 1 day duration Physical examination is significant for accessory respiratory muscle use, diffuse wheezing bilaterally Currently on room air and saturating mid 90s She was given breathing treatment, Solu-Medrol at the ED Chest x-ray showed no acute findings Continue Solu-Medrol 40 mg every 12 hourly Breathing treatment with DuoNeb's Placed her on Levaquin 750 mg p.o. daily Continue letter in respiratory parameters closely (3) Abnormal EKG Is this a current diagnosis for this admission?: Yes Plan: Patient currently admitted for COPD exacerbation Denies any chest pain EKG was significant for possible ST segment depression on lateral leads superimposed on ventricular ectopy Initial troponin is 0.013 Continue trending cardiac enzymes and EKG On telemetry monitoring Placed her on aspirin and high intensity statin Obtain lipid panel in the a.m. (4) Prolonged QT interval Is this a current diagnosis for this admission?: Yes (5) Hypertension Qualifiers: Hypertension type: essential hypertension Qualified Code(s): I10 - Essential (primary) hypertension Is this a current diagnosis for this admission?: Yes Plan: Blood pressure is optimally controlled Will continue home medication: Losartan On low-sodium diet (6) Hyperglycemia due to diabetes mellitus Is this a current diagnosis for this admission?: Yes (7) Diabetes mellitus type 2 in nonobese Is this a current diagnosis for this admission?: Yes (8) Hyperlipidemia Qualifiers: Hyperlipidemia type: unspecified Qualified Code(s): E78.5 - Hyperlipidemia, unspecified Is this a current diagnosis for this admission?: Yes Plan: Obtain updated lipid panel Patient on simvastatin at home Placed her on atorvastatin (9) Glaucoma Qualifiers: Glaucoma type: unspecified Laterality: unspecified laterality Qualified Code(s): H40.9 - Unspecified glaucoma Is this a current diagnosis for this admission?: Yes Plan: Continue home medications and follow-up with outpatient pulmonology (10) Hearing impaired Qualifiers: Hearing loss type: unspecified Laterality: unspecified laterality Qualified Code(s): H91.90 - Unspecified hearing loss, unspecified ear Is this a current diagnosis for this admission?: Yes 08/07/2020 NSTEMI-currently on Plavix (adverse effects of aspirin in the past), statin therapy and with respiratory status stable I have added low-dose metoprolol. No complaints of chest pain at this time. Troponins were trending down. Exacerbation of COPD-decrease scheduled nebulizer treatments. Continue as n eeded treatments. For tomorrow change to Breo inhaler or other combination inhaler therapy. Discontinue IV steroids and change to prednisone. Abnormal EKG-partly from NSTEMI but QT prolongation also noted. We will recheck in the morning. May need to alter haloperidol and duloxetine. Hypertension-blood pressures quite variable. No change in medications at this time. Diabetes-continue Lantus with premeal and sliding scale Humalog. Glaucoma-continue drops. Substitute home medications based on formulary Hearing loss-no acute intervention at this time 08/08/2020 NSTEMI-appreciate cardiology input. Per their suggestion I have added Imdur 30 mg daily. No evidence of acute coronary symptoms. Abnormal EKG-QT is slightly improved. Hyperlipidemia-continue statin therapy Exacerbation of COPD-I do long discussion with the patient's daughter. Evidently she has been tried on multiple outpatient combination inhalers. For a myriad of reasons she is unable to adequately use inhalers for meaningful therapy. Because of this we will likely rely on the nebulizer for scheduled and as needed treatments while at home. I have added budesonide to the regimen and discontinue systemic steroids. There is clearly a bronchitis component to her COPD. The daughter states that with exacerbations of COPD her primary care provider always treats for bronchitis. I will start doxycycline therapy today. We will also repeat a chest x-ray. Tessalon Perles have been added to help with the cough. Hypertension-blood pressures are still quite variable. Will monitor with the addition of Imdur. Diabetes-continue current insulin regimen. Accu-Cheks still vary considerably. They can be normal and her latest check today was 184. This could also be attributed to fluctuations in the diet. The patient utilizes oral tobacco products. She has been doing so since she was a child. Her daughter reports that she in fact sleeps with snuff in her cheek. It is certainly possible that she is having some silent aspiration while she sleeps. We discussed the possibility of cessation but at this point the p koko's daughter states that her mother will do what ever she wants and at 84 years old and it is unknown if cessation at this stage will have any true clinical impact. 08/09/2020 NSTEMI-stable Hypertension-not at goal. Increase losartan Diabetes mellitus-hold AC insulin dosing and tissue sliding scale at this time Exacerbation of COPD with bronchitis-addition of doxycycline is helping. The cough is almost completely resolved. We will asked respiratory to give the patient's daughter some training with the use of the nebulizer machine at home. Possible silent aspiration at home as the patient keeps snuff in her cheek through the night while she sleeps. I have encouraged patient's daughter not to allow her to do this. The patient did have some confusion today however the patient's daughter states that this is common when she gets sick. It typically last for 1 or 2 days and then resolves. We will continue to monitor closely. - Time Time Spent with patient: 15-24 minutes Medications reviewed and adjusted accordingly: Yes Anticipated Discharge Disposition: Home with Home Health Anticipated Discharge Timeframe: within 72 hours
[2020-08-09] MEDS: CHOLECALCIFEROL (D3) 1,000 UNIT (25 MCG) TABLET PO SCH (13:35)
[2020-08-09] MEDS: LATANOPROST 0.005% OPH SOLN 2.5 ML OU SCH (21:10)
[2020-08-09] MEDS: ATORVASTATIN CALCIUM 40 MG TABLET PO SCH (21:11)
[2020-08-09] MEDS: DULOXETINE HCL 20 MG CAPSULE.DR PO SCH (21:11)
[2020-08-09] MEDS: INSULIN GLARGINE,HUM.REC.ANLOG 1,000 UNIT/10 ML VIAL SUBCUT SCH (21:11)
[2020-08-10] MEDS: IPRATROPIUM/ALBUTEROL 0.5-2.5 MG/3 ML AMPUL NEB SCH ×3 (02:40→13:08)
[2020-08-10] MEDS: BENZONATATE 100 MG CAPSULE PO SCH (05:13)
[2020-08-10] MEDS: PANTOPRAZOLE SODIUM 40 MG TABLET.DR PO SCH (05:13)
[2020-08-10] MEDS: BUDESONIDE NEB 0.5 MG/2 ML AMPUL NEB SCH (08:17)
[2020-08-10] MEDS: INSULIN REG, HUMAN 100 UNIT/ML 3 ML VIAL (PYX) SUBCUT SCH ×2 (08:25→13:33)
[2020-08-10] MEDS: ASCORBIC ACID 500 MG TABLET PO SCH (09:40)
[2020-08-10] MEDS: HALOPERIDOL 0.5 MG TABLET PO SCH (09:40)
[2020-08-10] MEDS: CHOLECALCIFEROL (D3) 1,000 UNIT (25 MCG) TABLET PO SCH (09:58)
[2020-08-10] MEDS: DOCUSATE SODIUM 100 MG CAPSULE PO SCH (09:58)
[2020-08-10] MEDS: ISOSORBIDE MONONITRATE 30 MG TAB.ER.24H PO SCH (09:58)
[2020-08-10] MEDS: METOPROLOL SUCCINATE 25 MG TAB.SR.24H PO SCH (09:58)
[2020-08-10] MEDS: CLOPIDOGREL BISULFATE 75 MG TABLET PO SCH (09:58)
[2020-08-10] MEDS: TIMOLOL MALEATE 0.5% OPH SOLN 5 ML OU SCH (09:59)
[2020-08-10] MEDS: BRIMONIDINE TARTRATE 0.2% OPH SOLN 5 ML OU SCH (09:59)
[2020-08-10] MEDS: DOXYCYCLINE HYCLATE 100 MG in DEXTROSE 5%-WATER 250 ML IV SCH (10:00)
[2020-08-10] MEDS ORDERED: LOSARTAN POTASSIUM 25 MG TABLET PO SCH (10:00)
[2020-08-10 12:28] VITALS: BP 121/51
--- NOTE | 2020-08-10 12:40 | PDOC DISCHARGE SUMMARY ---
Impression - Admit/DC Date/PCP Admission Date/Primary Care Provider: 08/06/20 13:47 AARON EDGAR MD Discharge Date: 08/10/20 - Discharge Diagnosis (1) NSTEMI (non-ST elevated myocardial infarction) Is this a current diagnosis for this admission?: Yes (2) COPD exacerbation Is this a current diagnosis for this admission?: Yes (3) Abnormal EKG Is this a current diagnosis for this admission?: Yes (4) Prolonged QT interval Is this a current diagnosis for this admission?: Yes (5) Hypertension Is this a current diagnosis for this admission?: Yes (6) Hyperglycemia due to diabetes mellitus Is this a current diagnosis for this admission?: Yes (7) Diabetes mellitus type 2 in nonobese Is this a current diagnosis for this admission?: Yes (8) Hyperlipidemia Is this a current diagnosis for this admission?: Yes (9) Glaucoma Is this a current diagnosis for this admission?: Yes (10) Hearing impaired Is this a current diagnosis for this admission?: Yes - Assessment Summary: (1) NSTEMI (non-ST elevated myocardial infarction) Is this a current diagnosis for this admission?: Yes (2) COPD exacerbation Is this a current diagnosis for this admission?: Yes Plan: Patient presented with worsening of shortness of breath of 1 day duration Physical examination is significant for accessory respiratory muscle use, diffuse wheezing bilaterally Currently on room air and saturating mid 90s She was given breathing treatment, Solu-Medrol at the ED Chest x-ray showed no acute findings Continue Solu-Medrol 40 mg every 12 hourly Breathing treatment with DuoNeb's Placed her on Levaquin 750 mg p.o. daily Continue letter in respiratory parameters closely (3) Abnormal EKG Is this a current diagnosis for this admission?: Yes Plan: Patient currently admitted for COPD exacerbation Denies any chest pain EKG was significant for possible ST segment depression on lateral leads superimposed on ventricular ectopy Initial troponin is 0.013 Continue trending cardiac enzymes and EKG On telemetry monitoring Placed her on aspirin and high intensity statin Obtain lipid panel in the a.m. (4) Prolonged QT interval Is this a current diagnosis for this admission?: Yes (5) Hypertension Qualifiers: Hypertension type: essential hypertension Qualified Code(s): I10 - Essential (primary) hypertension Is this a current diagnosis for this admission?: Yes Plan: Blood pressure is optimally controlled Will continue home medication: Losartan On low-sodium diet (6) Hyperglycemia due to diabetes mellitus Is this a current diagnosis for this admission?: Yes (7) Diabetes mellitus type 2 in nonobese Is this a current diagnosis for this admission?: Yes (8) Hyperlipidemia Qualifiers: Hyperlipidemia type: unspecified Qualified Code(s): E78.5 - Hyperlipidemia, unspecified Is this a current diagnosis for this admission?: Yes Plan: Obtain updated lipid panel Patient on simvastatin at home Placed her on atorvastatin (9) Glaucoma Qualifiers: Glaucoma type: unspecified Laterality: unspecified laterality Qualified Code(s): H40.9 - Unspecified glaucoma Is this a current diagnosis for this admission?: Yes Plan: Continue home medications and follow-up with outpatient pulmonology (10) Hearing impaired Qualifiers: Hearing loss type: unspecified Laterality: unspecified laterality Qualified Code(s): H91.90 - Unspecified hearing loss, unspecified ear Is this a current diagnosis for this admission?: Yes 08/07/2020 NSTEMI-currently on Plavix (adverse effects of aspirin in the past), statin therapy and with respiratory status stable I have added low-dose metoprolol. No complaints of chest pain at this time. Troponins were trending down. Exacerbation of COPD-decrease scheduled nebulizer treatments. Continue as needed treatments. For tomorrow change to Breo inhaler or other combination inhaler therapy. Discontinue IV steroids and change to prednisone. Abnormal EKG-partly from NSTEMI but QT prolongation also noted. We will recheck in the morning. May need to alter haloperidol and duloxetine. Hypertension-blood pressures quite variable. No change in medications at this time. Diabetes-continue Lantus with premeal and sliding scale Humalog. Glaucoma-continue drops. Substitute home medications based on formulary Hearing loss-no acute intervention at this time 08/08/2020 NSTEMI-appreciate cardiology input. Per their suggestion I have added Imdur 30 mg daily. No evidence of acute coronary symptoms. Abnormal EKG-QT is slightly improved. Hyperlipidemia-continue statin therapy Exacerbation of COPD-I do long discussion with the patient's daughter. Evidently she has been tried on multiple outpatient combination inhalers. For a myriad of reasons she is unable to adequately use inhalers for meaningful therapy. Because of this we will likely rely on the nebulizer for scheduled and as needed treatments while at home. I have added budesonide to the regimen and discontinue systemic steroids. There is clearly a bronchitis component to her COPD. The daughter states that with exacerbations of COPD her primary care provider always treats for bronchitis. I will start doxycycline therapy today. We will also repeat a chest x-ray. Tessalon Perles have been added to help with the cough. Hypertension-blood pressures are still quite variable. Will monitor with the addition of Imdur. Diabetes-continue current insulin regimen. Accu-Cheks still vary considerably. They can be normal and her latest check today was 184. This could also be attributed to fluctuations in the diet. The patient utilizes oral tobacco products. She has been doing so since she was a child. Her daughter reports that she in fact sleeps with snuff in her cheek. It is certainly possible that she is having some silent aspiration while she sleeps. We discussed the possibility of cessation but at this point the patient's daughter states that her mother will do what ever she wants and at 84 years old and it is unknown if cessation at this stage will have any true clinical impact. 08/09/2020 NSTEMI-stable Hypertension-not at goal. Increase losartan Diabetes mellitus-hold AC insulin dosing and tissue sliding scale at this time Exacerbation of COPD with bronchitis-addition of doxycycline is helping. The cough is almost completely resolved. We will asked respiratory to give the patient's daughter some training with the use of the nebulizer machine at home. Possible silent aspiration at home as the patient keeps snuff in her cheek through the night while she sleeps. I have encouraged patient's daughter not to allow her to do this. The patient did have some confusion today however the patient's daughter states that this is common when she gets sick. It typically last for 1 or 2 days and then resolves. We will continue to monitor closely. 08/10/2020 The patient has no cough. She is on room air. She is much less confused and the daughter feels she is at her baseline. As we are ordering home health the daughter is comfortable for discharge to home. - Additional Information Resuscitation Status: Full Code Discharge Diet: Cardiac, Diabetic Discharge Activity: Activity As Tolerated, Balance Activity w/Rest Referrals: AARON EDGAR MD [Primary Care Provider] - 08/13/20 10:30 am JHONATHAN MEDINA MD [ACTIVE PROVISIONAL STAFF] - (SPOKE TO OFFICE STAFF. STAFF MEMBER STATED THEY WILL CALL PATIENT WITH A FOLLOW UP APPT. DATE AND TIME.) Prescriptions: Losartan Potassium [Cozaar 25 mg Tablet] 50 mg PO DAILY 30 Days #30 tablet Ipratropium/Albuterol Sulfate [Duoneb 3 ml Ampul] 3 ml NEB RTQ4HP PRN 30 Days #150 vial.neb PRN Reason: Shortness Of Breath Isosorbide Mononitrate [Imdur 30 mg Tablet.er] 30 mg PO DAILY 30 Days #30 tab.er.24h Atorvastatin Calcium [Lipitor 40 mg Tablet] 40 mg PO QHS 30 Days #30 tablet Clopidogrel Bisulfate [Plavix 75 mg Tablet] 75 mg PO DAILY 30 Days #30 tablet Metoprolol Succinate [Toprol Xl 25 mg Tab.sr] 25 mg PO DAILY 30 Days #30 tab.sr.24h Doxycycline Hyclate [Vibramycin 100 mg Tablet] 100 mg PO BID #14 tablet Home Medications: Ascorbic Acid [Vitamin C 500 mg Tablet] 500 mg PO Q2D 08/06/20 Ascorbic Acid/Collagen Hydr [Collagen Plus Vit C Capsule] 1 cap PO DAILY 08/06/20 Bimatoprost [Lumigan 0.01% Oph Soln 2.5 ml/Bottle] 1 drop OU QHS 08/06/20 Brimonidine Tartrate/Timolol [Combigan 0.2%-0.5% Eye Drops] 1 drop OU BID 08/06/20 Calcium Carbonate [Calcium] 600 mg PO Q2D 08/06/20 Calcium Polycarbophil [Fiber Tabs 625 mg Tablet] 3 tab PO DAILY 08/06/20 Cholecalciferol (Vitamin D3) [Vitamin D3 1000 Unit Tablet] 2,000 unit PO Q2D 08/06/20 Docusate Sodium [Colace 100 mg Capsule] 100 mg PO BID 08/06/20 Duloxetine HCl [Cymbalta 20 mg Capsule.dr] 20 mg PO QHS 08/06/20 Haloperidol [Haldol 0.5 mg Tablet] 0.125 mg PO QAM 08/06/20 Mv-Min/FA/Vit K/Lycop/Lut/Zeax [Ocuvite Eye Plus Multi Tablet] 1 each PO DAILY 08/06/20 Atorvastatin Calcium [Lipitor 40 mg Tablet] 40 mg PO QHS 30 Days #30 tablet 08/10/20 Cholecalciferol (Vitamin D3) [Vitamin D3 1000 Unit Tablet] 2,000 unit PO Q2D@0800 tablet 08/10/20 Clopidogrel Bisulfate [Plavix 75 mg Tablet] 75 mg PO DAILY 30 Days #30 tablet 08/10/20 Doxycycline Hyclate [Vibramycin 100 mg Tablet] 100 mg PO BID #14 tablet 08/10/20 Guaifenesin/D-Methorphan Hb [Robitussin-Dm Syrup 10 ml Udcup] 10 ml PO QIDP PRN syrup 08/10/20 Insulin Glargine,Hum.rec.anlog [Lantus Insulin 100 Unit/1 ml 10 ml] 26 unit SUBCUT QHS unit 08/10/20 Ipratropium/Albuterol Sulfate [Duoneb 3 ml Ampul] 3 ml NEB RTQ4HP PRN 30 Days #150 vial.neb 08/10/20 Isosorbide Mononitrate [Imdur 30 mg Tablet.er] 30 mg PO DAILY 30 Days #30 tab.er.24h 08/10/20 Losartan Potassium [Cozaar 25 mg Tablet] 50 mg PO DAILY 30 Days #30 tablet 07/21 09/09 Metoprolol Succinate [Toprol Xl 25 mg Tab.sr] 25 mg PO DAILY 30 Days #30 tab.sr.24h 08/10/20 History of Present Illiness History of Present Illness: WADE PELAEZ is a 84 year old female with a history of COPD, type 2 diabetes mellitus, hypertension, hyperlipidemia and glaucoma who presents with a 1 day duration of worsening of shortness of breath. Patient is hard of hearing and unable to give detailed history but her daughter was at her bedside who is very helpful. Patient has chronic longstanding shortness of breath which has been progressively getting worse but this morning she became distressed and felt short of breath even at rest. Associated with this she also was having audible wheezing. She used albuterol inhaler 4 times with no improvement before presenting to the ER. She has not noticed any significant change in the intensity of her cough or amount or color of sputum production. She denies any fever, chills, chest pain, palpitation, dizziness, nausea, vomiting. She also denies any orthopnea, PND, leg swelling or any change in her bowel or urinary habits. She denies any recent antibiotic use or hospitalization. Hospital Course Hospital Course: See details above Patient presented with NSTEMI as well as exacerbation of COPD with bronchitis. Shock she did rather well. She is now on a well-rounded regimen for her cardiac disease. We have worked out a plan to establish a decent baseline for her COPD treatment. Physical Exam Vital Signs: Temp Pulse Resp BP Pulse Ox 98.0 F 59 L 16 121/51 L 95 08/10/20 12:00 08/10/20 12:00 08/10/20 12:00 08/10/20 12:00 08/10/20 12:00 Intake & Output 08/09/20 08/10/20 08/11/20 06:59 06:59 06:59 Intake Total 2731 860 Output Total 2200 2250 Balance 531 -1390 Weight 62.8 kg 62.8 kg General appearance: PRESENT: no acute distress, cooperative, well-developed Head exam: PRESENT: atraumatic, normocephalic Teeth exam: PRESENT: poor dentation Respiratory exam: PRESENT: clear to auscultation shannon, symmetrical, unlabored. ABSENT: accessory muscle use, prolonged expiratory phas, rales, rhonchi, tachypnea, wheezes Cardiovascular exam: PRESENT: RRR, +S1, +S2. ABSENT: bradycardia, diastolic murmur, irregular rhythm, systolic murmur, tachycardia GI/Abdominal exam: PRESENT: normal bowel sounds, soft, other - Protuberant abdomen. ABSENT: tenderness Rectal exam: PRESENT: deferred Gentrourinary exam: ABSENT: indwelling catheter Extremities exam: ABSENT: pedal edema Musculoskeletal exam: PRESENT: normal inspection. ABSENT: deformity, dislocation Neurological exam: PRESENT: alert, awake, oriented to person, oriented to situation, other - Very hard of hearing. ABSENT: altered Psychiatric exam: PRESENT: appropriate affect. ABSENT: agitated, anxious Focused psych exam: ABSENT: delusional, paranoid, restlessness Skin exam: PRESENT: dry, normal color, warm. ABSENT: rash Results Laboratory Results: WBC 6.2 10^3/uL (4.0-10.5) 08/07/20 04:03 RBC 3.99 10^6/uL (3.72-5.28) 08/07/20 04:03 Hgb 11.1 g/dL (12.0-15.5) L 08/07/20 04:03 Hct 33.5 % (36.0-47.0) L 08/07/20 04:03 MCV 84 fl (80-97) 08/07/20 04:03 MCH 27.9 pg (27.0-33.4) 08/07/20 04:03 MCHC 33.2 g/dL (32.0-36.0) 08/07/20 04:03 RDW 13.8 % (11.5-14.0) 08/07/20 04:03 Plt Count 135 10^3/uL (150-450) L 08/07/20 04:03 Lymph % (Auto) 24.8 % (13-45) 08/06/20 03:09 [place] % (Auto) 1.8 % (3-13) L 08/06/20 03:09 Eos % (Auto) 0.7 % (0-6) 08/06/20 03:09 Baso % (Auto) 0.6 % (0-2) 08/06/20 03:09 Absolute Neuts (auto) 3.9 10^3/uL (1.7-8.2) 08/06/20 03:09 Absolute Lymphs (auto) 1.3 10^3/uL (0.5-4.7) 08/06/20 03:09 Absolute Monos (auto) 0.1 10^3/uL (0.1-1.4) 08/06/20 03:09 Absolute Eos (auto) 0.0 10^3/uL (0.0-0.6) 08/06/20 03:09 Absolute Basos (auto) 0.0 10^3/uL (0.0-0.2) 08/06/20 03:09 Seg Neutrophils % 72.1 % (42-78) 08/06/20 03:09 Sodium 138.3 mmol/L (137-145) 08/09/20 04:17 Potassium 4.4 mmol/L (3.6-5.0) 08/09/20 04:17 Chloride 104 mmol/L (98-107) 08/09/20 04:17 Carbon Dioxide 30 mmol/L (22-30) 08/09/20 04:17 Anion Gap 4 (5-19) L 08/09/20 04:17 BUN 32 mg/dL (7-20) H 08/09/20 04:17 Creatinine 1.10 mg/dL (0.52-1.25) 08/09/20 04:17 Est GFR ( Amer) 57 (>60) L 08/09/20 04:17 Est GFR (MDRD) Non-Af 47 (>60) L 08/09/20 04:17 Glucose 108 mg/dL (75-110) 08/09/20 04:17 POC Glucose 209 mg/dL (70-110) H 08/10/20 11:08 Hemoglobin A1c % 5.8 % (4.7-6.0) 08/07/20 04:03 Calcium 9.9 mg/dL (8.4-10.2) 08/09/20 04:17 Magnesium 2.4 mg/dL (1.6-2.3) H 08/09/20 04:17 Total Bilirubin 0.6 mg/dL (0.2-1.3) 08/05/20 21:20 Direct Bilirubin 0.4 mg/dL (0.0-0.4) 08/05/20 21:20 Neonat Total Bilirubin Not Reportable 08/05/20 21:20 Neonat Direct Bilirubin Not Reportable 08/05/20 21:20 Neonat Indirect Bili Not Reportable 08/05/20 21:20 AST 36 U/L (14-36) 08/05/20 21:20 ALT 14 U/L (<35) 08/05/20 21:20 Alkaline Phosphatase 79 U/L (38-126) 08/05/20 21:20 Troponin I 0.699 ng/mL 08/07/20 04:03 Total Protein 7.5 g/dL (6.3-8.2) 08/05/20 21:20 Albumin 4.5 g/dL (3.5-5.0) 08/05/20 21:20 Triglycerides 127 mg/dL (<150) 08/06/20 03:09 Cholesterol 155.83 mg/dL (0-200) 08/06/20 03:09 LDL Cholesterol Direct 68 mg/dL (<100) 08/06/20 03:09 VLDL Cholesterol 25.0 mg/dL (10-31) 08/06/20 03:09 HDL Cholesterol 59 mg/dL (>40) 08/06/20 03:09 Urine Color YELLOW 08/05/20 23:50 Urine Appearance CLEAR 08/05/20 23:50 Urine pH 5.0 (5.0-9.0) 08/05/20 23:50 Ur Specific [place] 1.019 08/05/20 23:50 Urine Protein 100 mg/dL (NEGATIVE) H 08/05/20 23:50 Urine Glucose (UA) NEGATIVE mg/dL (NEGATIVE) 08/05/20 23:50 Urine Ketones NEGATIVE mg/dL (NEGATIVE) 08/05/20 23:50 Urine Blood NEGATIVE (NEGATIVE) 08/05/20 23:50 Urine Nitrite NEGATIVE (NEGATIVE) 08/05/20 23:50 Urine Bilirubin NEGATIVE (NEGATIVE) 08/05/20 23:50 Urine Urobilinogen NEGATIVE mg/dL (<2.0) 08/05/20 23:50 Ur Leukocyte Esterase SMALL (NEGATIVE) H 08/05/20 23:50 Urine WBC (Auto) 15 /HPF 08/05/20 23:50 Urine RBC (Auto) 2 /HPF 08/05/20 23:50 Squamous Epi Cells Auto 1 /HPF 08/05/20 23:50 Urine Mucus (Auto) RARE /LPF 08/05/20 23:50 Urine Ascorbic Acid 40 (NEGATIVE) H 08/05/20 23:50 [place] Human Metapneumo PCR NOT DETECTED (NOT DETECT) 08/05/20 22:42 Adenovirus (PCR) NOT DETECTED (NOT DETECT) 08/05/20 22:42 B. pertussis DNA (PCR) NOT DETECTED (NOT DETECT) 08/05/20 22:42 B.parapertussis DNA PCR NOT DETECTED (NOT DETECT) 08/05/20 22:42 C. pneumoniae DNA (PCR) NOT DETECTED (NOT DETECT) 08/05/20 22:42 Coronavirus OC43 (PCR) NOT DETECTED (NOT DETECT) 08/05/20 22:42 Coronavirus HKU1 (PCR) NOT DETECTED (NOT DETECT) 08/05/20 22:42 Coronavirus 229E (PCR) NOT DETECTED (NOT DETECT) 08/05/20 22:42 Coronavirus NL63 (PCR) NOT DETECTED (NOT DETECT) 08/05/20 22:42 Influenza A (H1) PCR NOT DETECTED (NOT DETECT) 08/05/20 22:42 Influ A (H1N1/09) PCR NOT DETECTED (NOT DETECT) 08/05/20 22:42 Influenza A (H3) PCR NOT DETECTED (NOT DETECT) 08/05/20 22:42 Influenza Type A (PCR) NOT DETECTED (NOT DETECT) 08/05/20 22:42 Influenza Type B (PCR) NOT DETECTED (NOT DETECT) 08/05/20 22:42 M. pneumoniae (PCR) NOT DETECTED (NOT DETECT) 08/05/20 22:42 Parainfluenza 1 (PCR) NOT DETECTED (NOT DETECT) 08/05/20 22:42 Parainfluenza 2 (PCR) NOT DETECTED (NOT DETECT) 08/05/20 22:42 Parainfluenza 3 (PCR) NOT DETECTED (NOT DETECT) 08/05/20 22:42 Parainfluenza 4 (PCR) NOT DETECTED (NOT DETECT) 08/05/20 22:42 RSV (PCR) NOT DETECTED (NOT DETECT) 08/05/20 22:42 Entero/Rhino (PCR) NOT DETECTED (NOT DETECT) 08/05/20 22:42 SARS-CoV-2 (PCR) NOT DETECTED (NOT DETECT) 08/05/20 22:42 08/05/20 08/06/20 08/06/20 21:20 03:09 09:05 Troponin I 0.013 0.743 1.070 08/06/20 08/07/20 16:52 04:03 Troponin I 1.010 0.699 Impressions: Chest X-Ray 08/05/20 21:09 IMPRESSION: No acute disease. Chest X-Ray 08/08/20 00:00 IMPRESSION: NO ACUTE RADIOGRAPHIC FINDING IN THE CHEST. Plan Health Concerns: NSTEMI in 84-year-old patient with underlying COPD still uses snuff. She actually sleeps with snuff in her cheek. Plan of Treatment: As above detailed outline of utilizing nebulizer machine until we can establish an effective regimen with inhaler and chamber therapy. Follow-up with primary care as well as cardiology. Goals: Improved baseline COPD regimen. Try for abstinence of tobacco products but this will be extremely difficult. Adherence to cardiac/diabetic diet. Consistent regimen for diabetes. Time Spent: Greater than 30 Minutes Stroke Is this a Stroke Patient?: No Acute Heart Failure Is this a Heart Failure Patient?: No
[2020-08-10] MEDS ORDERED: INSULIN GLARGINE,HUM.REC.ANLOG 1,000 UNIT/10 ML VIAL SUBCUT SCH (22:00)
== END 2020-08-10 14:35 | disposition home or self-care (01) | DRG 190 ==
LOC: ER 20:56 → EH 08-06 02:13 → 4N 08-06 04:00 → OBSVTOIN 08-06 13:47
PROVIDERS: ADMIT Student in an Organized Health Care Education/Training Program; ATTEND Hospitalist
PROC: B24BZZ4 Ultrasonography of Heart with Aorta, Transesophageal (ICD-10-PCS; principal; 2020-08-06)
DX: J44.1 Chronic obstructive pulmonary disease with (acute) exacerbation (principal); I21.4 Non-ST elevation (NSTEMI) myocardial infarction; Z20.822 Contact with and (suspected) exposure to COVID-19; R94.31 Abnormal electrocardiogram [ECG] [EKG]; I10 Essential (primary) hypertension; E11.65 Type 2 diabetes mellitus with hyperglycemia; E78.5 Hyperlipidemia, unspecified; E11.39 Type 2 diabetes mellitus with other diabetic ophthalmic complication; H42 Glaucoma in diseases classified elsewhere; H91.90 Unspecified hearing loss, unspecified ear; I44.0 Atrioventricular block, first degree; Z79.899 Other long term (current) drug therapy; Z79.4 Long term (current) use of insulin; Z85.3 Personal history of malignant neoplasm of breast; Z90.12 Acquired absence of left breast and nipple
CPT/HCPCS: 36415; 71045; 80048; 80053; 80061; 81001; 82962; 83036; 83735; 84484; 85025; 85027; 87040; 87077; 87150; 87186; 93005; 93010; 93306; 94799; 0202U; J1650; J1815; J2920; J2930; J3490; J7060; J7512

== ENCOUNTER 2020-08-14 15:53 | Emergency (ER) | payer MEDICARE, MEDICAID ==
--- NOTE | 2020-08-14 16:18 | ER Document Report ---
ED Medical Screen (RME) - General Chief Complaint: Cough Stated Complaint: COUGH,CONGESTION Time Seen by Provider: 08/14/20 16:13 Primary Care Provider: AARON EDGAR MD [Primary Care Provider] - Follow up as needed Mode of Arrival: Wheelchair Information source: Patient, Relative Notes: HPI; 84-year-old female was brought to emergency room by her daughter who states patient is continuing to have shortness of breath and wheezing. She was seen here on August 05 was admitted discharged 4 days ago was given nebulizers and IV steroids while hospitalized. Was discharged home on doxycycline. Using her nebulizer as prescribed. Daughter states she is continuing to wheeze and appears more short of breath. Seems more confused than normal. PE: Patient is alert, oriented to name and age. Unable to tell me where she is. Lungs: Scattered rhonchi wheezes no rales. Heart: Bradycardic without murmurs, rubs, gallops. I have greeted and performed a rapid initial assessment of this patient. A comprehensive ED assessment and evaluation of the patient, analysis of test results and completion of the medical decision making process will be conducted by additional ED providers. I have specifically instructed the patient or family members with the patient to immediately return to any nursing staff should anything change in the patient's condition or with their chief complaint. TRAVEL OUTSIDE OF THE [place] IN LAST 30 DAYS: No - Related Data Allergies/Adverse Reactions: No Known Allergies Allergy (Verified 07/03/17 14:32) Past Medical History - Past Medical History Cardiac Medical History: Reports: Hx Hypercholesterolemia, Hx Hypertension Pulmonary Medical History: Reports: Hx Asthma, Hx COPD Endocrine Medical History: Reports: Hx Diabetes Mellitus Type 1, Hx Diabetes Mellitus Type 2 Renal/ Medical History: Denies: Hx Peritoneal Dialysis Malignancy Medical History: Reports: Hx Breast Cancer Psychiatric Medical History: Denies: Hx Depression Past Surgical History: Reports: Hx Mastectomy - Left - Immunizations Hx Diphtheria, Pertussis, Tetanus Vaccination: Yes Physical Exam - Vital signs Vitals: Temp Pulse Resp BP Pulse Ox 98.1 F 57 L 16 115/67 94 08/14/20 16:00 08/14/20 16:00 08/14/20 16:00 08/14/20 16:00 08/14/20 16:00 Course - Vital Signs Vital signs: Temp Pulse Resp BP Pulse Ox 98.1 F 57 L 16 115/67 94 08/14/20 16:00 08/14/20 16:00 08/14/20 16:00 08/14/20 16:00 08/14/20 16:00 Doctor's Discharge - Discharge Referrals: AARON EDGAR MD [Primary Care Provider] - Follow up as needed
--- NOTE | 2020-08-14 16:51 | RADIOLOGY REPORT (SQ) ---
EXAM DESCRIPTION: CHEST SINGLE VIEW IMAGES COMPLETED DATE/TIME: 08/14/2020 4:40 pm REASON FOR STUDY: dyspnea COMPARISON: 08/08/2020. EXAM PARAMETERS: NUMBER OF VIEWS: One view. TECHNIQUE: Single frontal radiographic view of the chest acquired. RADIATION DOSE: NA LIMITATIONS: None. FINDINGS: LUNGS AND PLEURA: Mild basilar scarring. No infiltrates, masses or pneumothorax. No pleur al effusion. MEDIASTINUM AND HILAR STRUCTURES: No masses. Contour normal. HEART AND VASCULAR STRUCTURES: Heart normal in size. Normal vasculature. BONES: No acute findings. HARDWARE: Surgical clips. OTHER: No other significant finding. IMPRESSION: NO ACUTE RADIOGRAPHIC FINDING IN THE CHEST. TECHNICAL DOCUMENTATION: JOB ID: [id number] 2010 [employer]- All Rights Reserved Reading location - IP/workstation name: [email or web address]
[2020-08-14 17:02] LABS: ABSOLUTE BASOPHILS # (AUTO) 0.1 10^3/uL (0.0-0.2); ABSOLUTE EOSINOPHILS # (AUTO) 0.7 10^3/uL (0.0-0.6); ABSOLUTE LYMPHOCYTES (AUTO) 3.3 10^3/uL (0.5-4.7); ABSOLUTE MONOCYTES (AUTO) 1.1 10^3/uL (0.1-1.4); ABSOLUTE NEUT (AUTO) 2.9 10^3/uL (1.7-8.2); BASOPHILS % (AUTO) 0.6 % (0-2); EOSINOPHILS % (AUTO) 8.8 % (0-6); HEMATOCRIT 36.4 % (36.0-47.0); HEMOGLOBIN 11.8 g/dL (12.0-15.5); MEAN CORPUSCULAR HEMOGLOBIN 27.7 pg (27.0-33.4); MEAN CORPUSCULAR HGB CONC 32.4 g/dL (32.0-36.0); MEAN CORPUSCULAR VOLUME 86 fl (80-97); MONOCYTES % (AUTO) 13.7 % (3-13); PLATELET COUNT 132 10^3/uL (150-450); RED BLOOD COUNT 4.26 10^6/uL (3.72-5.28); RED CELL DISTRIBUTION WIDTH 13.8 % (11.5-14.0); SEGMENTED NEUTROPHILS % (AUTO) 35.9 % (42-78); TOTAL CELLS COUNTED % (AUTO) 100 %; WHITE BLOOD COUNT 8.1 10^3/uL (4.0-10.5)
[2020-08-14 17:24] LABS: ALBUMIN 3.1 g/dL (3.5-5.0); ALKALINE PHOSPHATASE 128 U/L (38-126); ASPARTATE AMINO TRANSFERASE 33 U/L (14-36); BILIRUBIN,DIRECT 0.3 mg/dL (0.0-0.4); BILIRUBIN,TOTAL 0.4 mg/dL (0.2-1.3); BLOOD UREA NITROGEN 42 mg/dL (7-20); CALCIUM 9.4 mg/dL (8.4-10.2); CARBON DIOXIDE 30 mmol/L (22-30); GLUCOSE 215 mg/dL (75-110); POTASSIUM 4.4 mmol/L (3.6-5.0); TOTAL PROTEIN 5.7 g/dL (6.3-8.2)
[2020-08-14 17:29] LABS: CHLORIDE 107 mmol/L (98-107)
[2020-08-14 17:30] LABS: ANION GAP 3 (5-19)
--- NOTE | 2020-08-14 18:45 | EKG REPORT ---
SEVERITY:- ABNORMAL ECG - SINUS RHYTHM FIRST DEGREE AV BLOCK IVCD, CONSIDER ATYPICAL RBBB BORDERLINE ST DEPRESSION, LATERAL LEADS : Confirmed by: Tyree Lin MD 14-Aug-2020 18:45:34
[2020-08-14] MEDS ORDERED: METHYLPREDNISOLONE INJ 125 MG/2 ML SDV IV ONE (18:47)
[2020-08-14] MEDS ORDERED: IPRATROPIUM/ALBUTEROL 0.5-2.5 MG/3 ML AMPUL NEB ONE ×2 (18:47→21:58)
--- NOTE | 2020-08-14 19:01 | ER Document Report ---
ED General - General Chief Complaint: Nonproductive Cough Stated Complaint: COUGH,CONGESTION Time Seen by Provider: 08/14/20 16:13 Primary Care Provider: AARON EDGAR MD [Primary Care Provider] - Follow up as needed Mode of Arrival: Wheelchair TRAVEL OUTSIDE OF THE [place] IN LAST 30 DAYS: No - HPI Notes: Patient is an 84-year-old female who presents emergency department for evaluation. She is mildly confused, has difficulty with I[place], daughter is the primary historian. Actually the pleasure of seeing this patient back a little over a week ago. She was admitted to the hospital, diagnosed with a COPD exacerbation, and a non-ST elevation MS. She was discharged home 4 days ago. She was sent with howard ahuja, antibiotics. Patient's daughter just got the Plavix filled today. She became more acutely short of breath today. She has been more confused over the last several days. She has had no fevers or chills. No nausea or vomiting. She is eating and drinking normally. - Related Data Allergies/Adverse Reactions: No Known Allergies Allergy (Verified 08/14/20 18:01) Home Medications: List from recent discharge summary reviewed Past Medical History - General Information source: Patient, Relative - Social History Smoking Status: Never Smoker Family History: Reviewed & Not Pertinent - Past Medical History Cardiac Medical History: Reports: Hx Hypercholesterolemia, Hx Hypertension Pulmonary Medical History: Reports: Hx Asthma, Hx COPD Endocrine Medical History: Reports: Hx Diabetes Mellitus Type 2 Renal/ Medical History: Denies: Hx Peritoneal Dialysis Malignancy Medical History: Reports: Hx Breast Cancer Psychiatric Medical History: Denies: Hx Depression Past Surgical History: Reports: Hx Mastectomy - Left - Immunizations Hx Diphtheria, Pertussis, Tetanus Vaccination: Yes Hx Pneumococcal Vaccination: 06/23/14 Review of Systems - Review of Systems Constitutional: Malaise, Weakness EENT: No symptoms reported Cardiovascular: See HPI Respiratory: See HPI Gastrointestinal: No symptoms reported Genitourinary: No symptoms reported Musculoskeletal: No symptoms reported Skin: No symptoms reported Neurological/Psychological: See HPI Physical Exam - Vital signs Vitals: Temp Pulse Resp BP Pulse Ox 98.1 F 57 L 16 115/67 94 08/14/20 16:00 08/14/20 16:00 08/14/20 16:00 08/14/20 16:00 08/14/20 16:00 - Notes Notes: This is an 84-year-old female who appears her stated age in a mild amount of stress when I go to evaluate her. She is tachypneic, conversationally dyspneic, and has audible wheezing from across the room. Vital signs reviewed, please refer to chart. Head is normocephalic, atraumatic. Pupils equal round, reactive to light. Neck is supple without meningismus. Heart is regular rate and rhythm. Lungs reveal inspiratory next Tory wheezes throughout, accessory muscle use noted. Abdomen is soft, nontender, normoactive bowel sounds throughout. Extremities without cyanosis, clubbing. +1 pitting edema to the pretibial regions bilaterally. Posterior calves are nontender. Peripheral pulses are equal. Skin is warm and dry. Patient is awake, alert, disoriented to place, but oriented to person and time. Course - Re-evaluation Re-evalutation: 08/14/20 18:56 Patient presents emergency department for evaluation. Laboratory investigations were ordered. I am still waiting for her EKG. When she was recently admitted she developed a non-ST elevation MS with new Q waves denied elevated troponin. I did add troponin to her labs. Initially she was not hypoxic, it was reported to be in by nursing that the patient was supine and became more acutely short of breath, became hypoxic. According to daughter this was right near the 4-hour rosa of when she needed a nebulizer treatment. She states that this has been ongoing for the last 2 to 3 days, right about 3 and half hours she becomes more acutely dyspneic. Patient is currently being maintained on 2 L oxygen per nasal cannula. She was about 92 to 94% on this. I have ordered ABG. I have ordered DuoNeb, steroids. Per the daughter the patient was not on steroids at home. Patient is currently stable. 08/14/20 21:59 Patient remained stable. She is wheezing slightly, another DuoNeb is ordered, but she is no longer tachypneic, no longer using accessory muscles. She was 95 to 97% on room air at rest in the bathroom, pulse ox with ambulation from the bathroom back to the bed showed a drop only to 94%. The patient was just admitted with a COPD exacerbation and an NSTEMI. Her troponin is unremarkable. Her EKG is unchanged. Her x-ray shows no findings, I suspect that a course of steroids at home will be helpful. She was treated with Solu-Medrol here. I will send her home with prednisone. They are to follow-up with primary care, in fact she has an appointment tomorrow morning at 10 AM. They are to return to the ED with worsening or new concerning symptoms of any sort. - Vital Signs Vital signs: Temp Pulse Resp BP Pulse Ox 98.5 F 75 16 165/117 H 96 08/14/20 20:35 08/14/20 20:35 08/14/20 16:00 08/14/20 20:35 08/14/20 20:35 - Laboratory Results Result Diagrams: 08/14/20 16:30 08/14/20 16:30 Laboratory Results Interpreted: 08/14/20 08/14/20 08/14/20 16:30 16:30 19:29 Hgb 11.8 L Plt Count 132 L [place] % (Auto) 13.7 H Eos % (Auto) 8.8 H Absolute Eos (auto) 0.7 H Seg Neutrophils % 35.9 L Carbonic Acid 1.50 H ABG pCO2 49.7 H ABG pO2 74.0 L ABG HCO3 28.4 H ABG Total CO2 29.9 H Anion Gap 3 L BUN 42 H Est GFR ( Amer) 59 L Est GFR (MDRD) Non-Af 49 L Glucose 215 H Alkaline Phosphatase 128 H Total Protein 5.7 L Albumin 3.1 L Critical Laboratory Results Reviewed: No Critical Results - Radiology Results Radiology Results Interpreted: 08/14/20 18:58 Chest X-Ray 08/14/20 16:17 IMPRESSION: NO ACUTE RADIOGRAPHIC FINDING IN THE CHEST. Critical Radiology Results Reviewed: No Critical Results - EKG Interpretation by Me Additional EKG results interpreted by me: 08/14/20 22:00 Sinus mechanism with rate of 83 bpm. Normal axis. IVCD. First-degree AV block. Lateral ST changes concerning for possible ischemia, no acute ST elevation concerning for infarction. No significant change compared to prior study of August 08, 2020 Discharge - Discharge Clinical Impression: COPD (chronic obstructive pulmonary disease) Qualifiers: COPD type: COPD with acute exacerbation Qualified Code(s): J44.1 - Chronic obstructive pulmonary disease with (acute) exacerbation Condition: Stable Disposition: HOME, SELF-CARE Instructions: Chronic Obstructive Lung Disease ([facility]) Additional Instructions: Take prednisone as it as directed until gone. Use nebulizer at home every 4-6 hours as needed. Follow-up tomorrow morning with primary care provider. If she develops worsening or new concerning symptoms of any sort, please return immediately to the emergency department for evaluation. Prescriptions: Prednisone [Deltasone 20 mg Tablet] See Protocol PO DAILY 5 Days #20 tablet Referrals: AARON EDGAR MD [Primary Care Provider] - Follow up as needed
[2020-08-14 19:41] LABS: ARTERIAL BLOOD BASE EXCESS 2.4 mmol/L; ARTERIAL BLOOD FIO2 96%; ARTERIAL BLOOD HCO3 28.4 mmol/L (20-24); ARTERIAL BLOOD O2 SATURATION 94.4 % (94-98); ARTERIAL BLOOD PCO2 49.7 mmHg (35-45); ARTERIAL BLOOD PH 7.38 (7.35-7.45); ARTERIAL BLOOD TOTAL CO2 29.9 mmol/L (21-25)
[2020-08-14 22:44] VITALS: BP 153/68
== END 2020-08-14 22:44 | disposition home or self-care (01) ==
LOC: ER 15:53
DX: J44.1 Chronic obstructive pulmonary disease with (acute) exacerbation (principal); R53.1 Weakness; E78.00 Pure hypercholesterolemia, unspecified; I10 Essential (primary) hypertension; E11.9 Type 2 diabetes mellitus without complications; Z85.3 Personal history of malignant neoplasm of breast; Z79.02 Long term (current) use of antithrombotics/antiplatelets; I25.2 Old myocardial infarction
CPT/HCPCS: 93005; 94640 ×2; 99285; 96374; 36415; 82803; 85025; 80053; 84484; 71045; 93010; J2930